=== PATIENT | female | born 1965 | race Caucasian/White ===

== ENCOUNTER 2022-05-02 11:51 | Emergency (ER) | payer OTHER, SELFPAY ==
--- NOTE | ~2022-05-02 | XR_ITS ---
EXAMINATION: XR CHEST CLINICAL INFORMATION: Chest pain COMPARISON: Previous chest x-ray most recent March 2016 TECHNIQUE: Frontal view of the chest was obtained. FINDINGS: No significant abnormality is noted involving the heart, lungs, mediastinum, bony thorax or soft tissues. XR/XR chest 1V IMPRESSION: Unremarkable examination.
--- NOTE | ~2022-05-02 | CT_ITS ---
EXAMINATION: CT HEAD WITHOUT CONTRAST CLINICAL INFORMATION: Dizziness. COMPARISON: No relevant prior imaging. TECHNIQUE: Contiguous axial imaging was performed from the skull base to vertex without intravenous administration of contrast. This CT examination was performed using dose optimization techniques as appropriate, variously including the following: *Automated exposure control *Adjustment of mA and/or kV according to patient size (this includes techniques or standardized protocols for targeted exams where dose is matched to indication/reason for exam; i.e. extremities or head) *Use of iterative reconstruction technique DLP: 641 mGy-cm FINDINGS: There is no acute intracranial hemorrhage or abnormal extra-axial collection. No intracranial mass effect or midline shift. Lateral and third ventricles are normal. No hydrocephalus. Vogt-white matter differentiation is preserved and there is no evidence of acute territorial infarct. The calvarium and skull base are intact. Mastoid air cells and middle ear cavities are well aerated. No active paranasal sinus disease. Globes and orbits are symmetric. CT/CT head/brain wo IV con IMPRESSION: Normal CT scan of the head.
[2022-05-02 12:03] VITALS: BP 143/72; PULSE 124; PULSE 75; RESP 18; TEMP 36.8; O2SAT 98; BMI 30.1
--- NOTE | 2022-05-02 12:10 | ECG_ITS ---
Test Reason : chest pain Blood Pressure : / mmHG Vent. Rate : 069 BPM Atrial Rate : 069 BPM P-R Int : 154 ms QRS Dur : 082 ms QT Int : 400 ms P-R-T Axes : 024 060 044 degrees QTc Int : 428 ms Normal sinus rhythm Normal ECG No previous ECGs available Referred By: Dale Potts Electronically Signed By:HUMA MADERA MD
--- NOTE | 2022-05-02 12:11 | ED_ITS ---
HPI - General Adult General Chief complaint: General Medical Stated complaint: CP FROM MD OFFICE PER EMS Time Seen by Provider: 05/02/22 12:07 Source: patient Mode of arrival: ambulatory History of Present Illness HPI narrative: This is a 56 years old the female referred to us from the urgent care because of left-sided chest pain. She went to the urgent care because she was having leg cramps for about 4 days while sitting there she developed chest pain and dizziness she vomited x1. She has history of anxiety denies a history of diab etes high blood pressure hypercholesteremia Onset (ago): hour(s) (3) Location: chest Radiation: non-radiation Severity: mild Severity scale (1-10): 2 Quality: burning Pain Consistency: constant Related Data Allergies Allergy/AdvReac Type Severity Reaction Status Date / Time Sulfa (Sulfonamide Allergy Unknown Verified 03/15/18 00:00 Antibiotics) Review of Systems Constitutional: Constitutional: Reports no additional constitutional complaints Eyes: Eyes: Reports no additional eye complaints ENT: Reports system reviewed and no additional complaints, except as documented Cardiovascular: Cardiovascular: Reports no additional cardiovascular complaints Psychiatric: Psychiatric: Reports no additional psychiatric complaints [facility] Past Medical History [facility] Narrative: anxiety Social History Social History Smoked in Last 30 Days: No Advance Directives: Yes Advance Directives Information Provided: Yes Advance Directives on File: No Physical Exam ED Vital Signs: Vital Signs - 24 hr 05/02/22 12:03 05/02/22 15:00 Temperature 98.2 F 96.9 F Pulse Rate 75 71 Respiratory Rate 18 14 Blood Pressure 143/72 H 148/66 H Pulse Oximetry 98 99 Oxygen Delivery Method Room Air Room Air BMI result Body Mass Index 30.1 Const General: cooperative, comfortable, no acute distress and well developed Nutritional Appearance: well nourished Orientation/consciousness: patient oriented x3 Limitations: no limitations HENMT Head: Yes normal to inspection General nose exam: Normal external nose present Face and sinus: Yes normal facial exam Mouth: Normal oral and palatal mucosa present Throat: Yes posterior oropharynx normal Neck Neck: Yes normal visual inspection and Yes full ROM Chest Chest palpation & inspection: normal inspection of the chest Resp Effort & Inspection: normal respiratory effort Auscultation: clear to auscultation bilaterally Cardio Jugular venous distension: no JVD Rate: regular rate Rhythm: regular rhythm GI Inspection: Yes normal to inspection Palpation (GI): Soft to palpation Skin General skin exam: no rashes or lesions noted, elasticity normal and turgor normal Neuro General: patient oriented x3 Course Reevaluation(s) Reevaluation #1: AT THIS TIME THE PATIENT IS FEELING MUCH BETTER DELTA TROPONIN IS NEGATIVE SHE NORMAL ELECTROCARDIOGRAM I DO NOT EKG HAS ACUTE CORONARY SYNDROME, FAR THE DIZZINESS GOES SHE IS FEELING BETTER WE ARE WAITING FOR THE CT OF THE HEAD ASSUMING IS NORMAL ANTICIPATE DISCHARGE Reevaluation #2: i SIGNED OUT THE CASE TO dR HERRERA AT 4.[address] NEGATIVE,PT GAIT TO BE REEXAMINED Medications Administered Discontinued Medications Generic Name Dose Route Start Last Admin Trade Name Freq PRN Reason Stop Dose Admin Sodium Chloride 1,000 mls @ 999 mls/hr 05/02/22 12:15 05/02/22 14:34 Ns IVCONT 05/02/22 13:15 Infused .Q1H1M TONY Infusion Sodium Chloride 1,000 mls @ 999 mls/hr 05/02/22 14:30 05/02/22 14:32 Ns IVCONT 05/02/22 15:30 999 mls/hr .Q1H1M TONY Administration Ketorolac Tromethamine 30 mg 05/02/22 14:02 05/02/22 14:33 Ketorolac Tromethamine 30 Mg/Ml Vial IVPUSH 05/02/22 14:03 30 mg ONCE ONE Administration Meclizine HCl 25 mg 05/02/22 15:16 05/02/22 15:27 Meclizine Hcl 25 Mg Tablet PO 05/02/22 15:17 25 mg ONCE ONE Administration Ondansetron HCl 4 mg 05/02/22 12:10 05/02/22 12:20 Ondansetron Hcl 4 Mg/2 Ml Vial IVPUSH 05/02/22 12:11 4 mg ONCE ONE Administration Ondansetron HCl 4 mg 05/02/22 14:23 05/02/22 14:33 Ondansetron Hcl 4 Mg/2 Ml Vial IVPUSH 05/02/22 14:24 4 mg ONCE ONE Administration Medical Decision Making Lab Data Result diagrams: 05/02/22 12:42 05/02/22 12:42 Labs: Lab Results 05/02/22 05/02/22 05/02/22 Range/Units 12:42 12:42 12:42 WBC 5.9 (4.8-10.8) X10*3/uL RBC 4.15 L (4.20-5.50) X10*6/uL Hgb 12.7 (12.0-16.0) g/dl Hct 38.7 (37.0-47.0) % MCV 93.3 (80.0-98.0) fL MCH 30.6 (27.0-33.0) pg MCHC 32.8 (31.0-35.0) g/dl RDW 11.9 (11.0-16.0) % Plt Count 304 (160-400) X10*3/uL MPV 10.1 (9.4-12.3) fL Immature Gran % (Auto) 0.3 (0.0-0.4) % Neut % (Auto) 71.5 (45-73) % Lymph % (Auto) 19.1 L (20-40) % Harding % (Auto) 7.8 (2-11) % Eos % (Auto) 1.0 (0-4) % Baso % (Auto) 0.3 (0-2) % Lymph # (Auto) 1.1 L (1.2-4.9) X10*3/uL Harding # (Auto) 0.5 (0.1-1.2) X10*3/uL Eos # (Auto) 0.1 (0.0-0.4) X10*3/uL Baso # (Auto) 0.0 (0.0-0.2) X10*3/uL Abs Immat Gran (auto) 0.02 (0.00-0.03) X10*3/uL Absolute Neuts (auto) 4.2 (2.0-8.3) x10*3/uL Absolute Nucleated RBC 0.000 (0.0-0.012) X10*3/uL Nucleated RBC % (auto) 0.0 (0.0-0.2) /100WBC Sodium 138 (135-145) mmol/L Potassium 4.5 (3.3-5.1) mmol/L Chloride 103 (96-108) mmol/L Carbon Dioxide 27 (22-29) mmol/L Anion Gap 13 (12-20) BUN 12 (9-16) mg/dL Creatinine 0.59 (0.5-1.4) mg/dL Estim Creat Clear Calc 109.9 Estimated GFR > 60 Random Glucose 103 (60-115) mg/dL Calcium 9.2 (8.4-10.2) mg/dL Magnesium (1.6-2.6) mg/dL Total Bilirubin 0.6 (0.0-1.0) mg/dL AST 14 (5-31) U/L ALT 10 (0-31) U/L Alkaline Phosphatase 51 (39-117) U/L Troponin I High Sens < 3.5 (<3.5-17.0) ng/L Total Protein 7.0 (6.5-8.0) g/dL Albumin 4.3 (3.5-5.0) g/dL Beta HCG, Quant 3 mIU/mL COVID-19 (SURYA) (Negative) COVID-19 Clin Com 05/02/22 05/02/22 05/02/22 Range/Units 12:42 14:37 14:37 WBC (4.8-10.8) X10*3/uL RBC (4.20-5.50) X10*6/uL Hgb (12.0-16.0) g/dl Hct (37.0-47.0) % MCV (80.0-98.0) fL MCH (27.0-33.0) pg MCHC (31.0-35.0) g/dl RDW (11.0-16.0) % Plt Count (160-400) X10*3/uL MPV (9.4-12.3) fL Immature Gran % (Auto) (0.0-0.4) % Neut % (Auto) (45-73) % Lymph % (Auto) (20-40) % Harding % (Auto) (2-11) % Eos % (Auto) (0-4) % Baso % (Auto) (0-2) % Lymph # (Auto) (1.2-4.9) X10*3/uL Harding # (Auto) (0.1-1.2) X10*3/uL Eos # (Auto) (0.0-0.4) X10*3/uL Baso # (Auto) (0.0-0.2) X10*3/uL Abs Immat Gran (auto) (0.00-0.03) X10*3/uL Absolute Neuts (auto) (2.0-8.3) x10*3/uL Absolute Nucleated RBC (0.0-0.012) X10*3/uL Nucleated RBC % (auto) (0.0-0.2) /100WBC Sodium (135-145) mmol/L Potassium (3.3-5.1) mmol/L Chloride (96-108) mmol/L Carbon Dioxide (22-29) mmol/L Anion Gap (12-20) BUN (9-16) mg/dL Creatinine (0.5-1.4) mg/dL Estim Creat Clear Calc Estimated GFR Random Glucose (60-115) mg/dL Calcium (8.4-10.2) mg/dL Magnesium 1.9 (1.6-2.6) mg/dL Total Bilirubin (0.0-1.0) mg/dL AST (5-31) U/L ALT (0-31) U/L Alkaline Phosphatase (39-117) U/L Troponin I High Sens < 3.5 (<3.5-17.0) ng/L Total Protein (6.5-8.0) g/dL Albumin (3.5-5.0) g/dL Beta HCG, Quant mIU/mL COVID-19 (SURYA) Negative (Negative) COVID-19 Clin Com See Note ECG Data Attestation: I personally reviewed and interpreted this ECG as follows: Pacemaker model: NORMAL SINUS RHYTHM A NO ST-T CHANGES NORMAL ELECTROCARDIOGRAM Discharge Plan Discharge Clinical Impression: Chest pain, Dizziness Patient Disposition: Still a Patient Instructions: Chest Pain (DC), Dizziness (ED)
[2022-05-02] MEDS: ondansetron HCL 4 MG/2 ML VIAL IVPUSH ×2 (12:20→14:33)
[2022-05-02] MEDS: 0.9 % Sodium Chloride 1,000 ML 999 ML IVCONT ×2 (12:21→14:32)
[2022-05-02 12:52] LABS: MANUAL DIFF FLAG NO
[2022-05-02 12:57] LABS: Basophils Percent Auto 0.3 % (0-2); Eosinophils Absolute Auto 0.1 X10*3/uL (0.0-0.4); Hematocrit 38.7 % (37.0-47.0); Hemoglobin 12.7 g/dl (12.0-16.0); Imm Gran Abs Auto 0.02 X10*3/uL (0.00-0.03); Imm Gran Pct Auto 0.3 % (0.0-0.4); Lymphocytes Absolute Auto 1.1 X10*3/uL (1.2-4.9); Lymphocytes Percent Auto 19.1 % (20-40); Mean Corpuscular HGB Conc 32.8 g/dl (31.0-35.0); Mean Corpuscular Hemoglobin 30.6 pg (27.0-33.0); Mean Corpuscular Volume 93.3 fL (80.0-98.0); Mean Platelet Volume 10.1 fL (9.4-12.3); Monocytes Absolute Auto 0.5 X10*3/uL (0.1-1.2); Monocytes Percent Auto 7.8 % (2-11); Neutrophils Absolute Auto 4.2 x10*3/uL (2.0-8.3); Neutrophils Percent Auto 71.5 % (45-73); Platelet Count 304 X10*3/uL (160-400); Red Blood Count 4.15 X10*6/uL (4.20-5.50); Red Cell Distribution Width 11.9 % (11.0-16.0); White Blood Count 5.9 X10*3/uL (4.8-10.8)
[2022-05-02 13:06] LABS: COVID-19 Test Negative (Negative); IDNOW Serial# 16C4AD1C
[2022-05-02 13:18] LABS: Troponin-I High Sensitivity < 3.5 ng/L (<3.5-17.0)
[2022-05-02 13:21] LABS: Alanine Aminotransferase 10 U/L (0-31); Albumin Level 4.3 g/dL (3.5-5.0); Alkaline Phosphatase 51 U/L (39-117); Anion Gap 13 (12-20); Aspartate Amino Transferase 14 U/L (5-31); Bilirubin Total 0.6 mg/dL (0.0-1.0); Blood Urea Nitrogen 12 mg/dL (9-16); Calcium 9.2 mg/dL (8.4-10.2); Carbon Dioxide 27 mmol/L (22-29); Chloride 103 mmol/L (96-108); Creatinine Clr Calc Pharmacy 109.9; Estimated Glomerular Filt Rate > 60; Glucose Random 103 mg/dL (60-115); Potassium 4.5 mmol/L (3.3-5.1); Sodium 138 mmol/L (135-145)
[2022-05-02 13:27] LABS: HCG Quantitative 3 mIU/mL
[2022-05-02] MEDS: Ketorolac Tromethamine 30 MG/ML VIAL IVPUSH (14:33)
[2022-05-02 15:00] VITALS: BP 148/66; PULSE 71; RESP 14; TEMP 36.1; O2SAT 99
[2022-05-02 15:02] LABS: Magnesium 1.9 mg/dL (1.6-2.6)
[2022-05-02 15:22] LABS: Troponin-I High Sensitivity < 3.5 ng/L (<3.5-17.0)
[2022-05-02] MEDS: Meclizine HCl 25 MG TABLET PO (15:27)
[2022-05-02] MEDS: Metoclopramide HCl 10 MG/2 ML VIAL IVPUSH (16:41)
--- NOTE | 2022-05-02 19:08 | PC.NURSE ---
Patient a/ox4 . Went over discharge instructions as ordered by provider . patient to follow up with primary care . no questions at this time .
== END 2022-05-02 19:11 | disposition still patient (30) ==
PROVIDERS: Emergency Provider Emergency Medicine; PCP Internal Medicine
DX: R07.89 Other chest pain (principal); R42 Dizziness and giddiness; Z20.822 Contact with and (suspected) exposure to COVID-19; Z79.899 Other long term (current) drug therapy
CPT/HCPCS: 36415; 70450; 71045; 80053; 83735; 84484; 84702; 85025; 87635; 93005; 96361; 96374; 96375; 96376; 99285; J1885; J2405; J2765

== ENCOUNTER 2022-09-30 12:10 | Emergency (ER) | payer OTHER, SELFPAY ==
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
[2022-09-30 12:14] VITALS: BP 144/87; PULSE 75; RESP 20; TEMP 36.6; O2SAT 98; BMI 29.9
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
[2022-09-30 13:52] LABS: MANUAL DIFF FLAG NO
[2022-09-30 13:53] LABS: Basophils Percent Auto 0.6 % (0-2); Eosinophils Absolute Auto 0.1 X10*3/uL (0.0-0.4); Eosinophils Percent Auto 1.4 % (0-4); Hematocrit 38.3 % (37.0-47.0); Hemoglobin 12.6 g/dl (12.0-16.0); Imm Gran Abs Auto 0.02 X10*3/uL (0.00-0.03); Imm Gran Pct Auto 0.3 % (0.0-0.4); Lymphocytes Absolute Auto 2.4 X10*3/uL (1.2-4.9); Lymphocytes Percent Auto 34.4 % (20-40); Mean Corpuscular HGB Conc 32.9 g/dl (31.0-35.0); Mean Corpuscular Hemoglobin 30.6 pg (27.0-33.0); Mean Platelet Volume 10.4 fL (9.4-12.3); Monocytes Absolute Auto 0.5 X10*3/uL (0.1-1.2); Monocytes Percent Auto 7.5 % (2-11); Neutrophils Percent Auto 55.8 % (45-73); Platelet Count 311 X10*3/uL (160-400); Red Blood Count 4.12 X10*6/uL (4.20-5.50); Red Cell Distribution Width 12.2 % (11.0-16.0); White Blood Count 7.1 X10*3/uL (4.8-10.8)
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
[2022-09-30 15:05] LABS: Blood Urea Nitrogen 15 mg/dL (9-16); Potassium 3.5 mmol/L (3.3-5.1)
[2022-09-30 15:06] LABS: Alanine Aminotransferase 18 U/L (0-31); Albumin Level 4.2 g/dL (3.5-5.0); Alkaline Phosphatase 53 U/L (39-117); Anion Gap 14 (12-20); Aspartate Amino Transferase 21 U/L (5-31); Bilirubin Direct 0.2 mg/dL (0.0-0.5); Bilirubin Total 0.6 mg/dL (0.0-1.0); Calcium 9.4 mg/dL (8.4-10.2); Carbon Dioxide 27 mmol/L (22-29); Chloride 102 mmol/L (96-108); Estimated Glomerular Filt Rate > 60; Glucose Random 99 mg/dL (60-115); HCG Quantitative < 2 mIU/mL; Sodium 139 mmol/L (135-145)
[2022-09-30] MEDS: iohexoL 350 MG/ML 100 ML INFUS..BTL IV (15:47)
[2022-09-30] MEDS: Lidocaine 4 % Patch ADH..PATCH 1 PATCH TRANSDERMA (17:21)
[2022-09-30] MEDS: Ketorolac Tromethamine 15 MG/ML VIAL 30 MG IVPUSH (17:21)
[2022-09-30 17:30] VITALS: BP 181/73; PULSE 62; RESP 19; O2SAT 100
--- NOTE | 2022-11-17 15:49 | MHC.CM.ED ---
CM received telephone call from liaison at [facility], questioning if CM received her note in care port that the patient's son would not agree to being her HCP. CONSERVATION TECHNICIAN Jazmyn evaluated patient yesterday and did not feel patient had capacity to make medical decisions, but was safe for return to [facility]. Pt has been living there since 2021. CM explained to liaison that patient has no other family, as her in 2018 and that the facility may need to petition for guardianship. CM could not complete a HCP for this patient prior to her return via BLS to the facility. Liaison stated that patient is already refusing her medications and that they may have to send her back to us. CM explained that psych does not feel patient meets inpatient criteria, so that may not be the best plan for this patient. Again, stating that facility may need to petition for guardianship and obtain a [facility] order for medication administration to care for this patient.
== END 2022-09-30 17:37 | disposition home or self-care (01) ==
PROVIDERS: Physician Assistant; Physician Assistant Medical; Emergency Provider Emergency Medicine; PCP Internal Medicine
DX: R07.81 Pleurodynia (principal); S06.0X0A Concussion without loss of consciousness, initial encounter; S13.4XXA Sprain of ligaments of cervical spine, initial encounter; S20.211A Contusion of right front wall of thorax, initial encounter; V43.62XA Car passenger injured in collision with other type car in traffic accident, initial encounter; R10.11 Right upper quadrant pain; R06.02 Shortness of breath; R91.1 Solitary pulmonary nodule; Y93.89 Activity, other specified; Y92.414 Local residential or business street as the place of occurrence of the external cause; Y99.9 Unspecified external cause status
CPT/HCPCS: 36415; 70450; 71260; 72125; 74177; 80048; 80076; 84702; 85025; 96374; 99284; J1885; Q9967

== ENCOUNTER 2022-12-11 07:20 | Outpatient (REF) | payer OTHER, SELFPAY ==
--- NOTE | ~2022-12-11 | CT_ITS ---
EXAMINATION: CT CHEST WITHOUT CONTRAST CLINICAL INFORMATION: Right middle lobe nodule. COMPARISON: CT chest dated 09/30/2022. TECHNIQUE: Multidetector volumetric CT imaging of the chest was done. Axial MIP volume rendering provided. Sagittal and coronal reformatted images were obtained. This CT examination was performed using dose optimization techniques as appropriate, variously including the following: *Automated exposure control *Adjustment of mA and/or kV according to patient size (this includes techniques or standardized protocols for targeted exams where dose is matched to indication/reason for exam; i.e. extremities or head) *Use of iterative reconstruction technique DLP: 1255 mGy-cm FINDINGS: ACQUISITIONS ANALYST: The lungs are symmetrically well-expanded and grossly clear. LUNGS: Abutting the accessory fissure (7:313 and 6:73), a stable 4 mm benign fissural lymph node is seen. There are several benign, calcified bilateral lung granulomas. No new nodule, mass, infiltrate or groundglass opacity is seen. There is no generalized increase in peripheral interlobular septal markings. No bleb or bullous formation is seen. There is mild dependent hypoaeration. No small airway thickening is seen. The central airways appear patent. MEDIASTINUM: The mediastinum is normal. CORONARY ARTERY CALCIFICATION: None visualized on this study. PLEURA: There is no pleural effusion. No pleural mass or thickening. AXILLA: No lymphadenopathy. UPPER ABDOMEN: The gallbladder is surgically absent. The adrenal glands are unremarkable. OSSEOUS STRUCTURES: There are old, healed left rib fractures. A stable mild T6 anterior wedge compression fracture is seen. There is no acute or aggressive osseous finding. CT/CT chest wo IV con IMPRESSION: There is a stable 4 mm benign fissural lymph node applied to the accessory fissure. There are benign, calcified granulomas. No new nodule, mass, infiltrate or groundglass opacity is seen. There is no thoracic lymphadenopathy or pleural effusion. No aggressive osseous lesion is noted. Fleischner guidelines were followed.
== END 2022-12-11 07:21 | disposition home or self-care (01) ==
LOC: HO.CT 07:20
PROVIDERS: PCP Internal Medicine; Visit Provider Nurse Practitioner Acute Care
DX: R91.1 Solitary pulmonary nodule (principal)
CPT/HCPCS: 71250

== ENCOUNTER 2023-05-25 13:24 | Outpatient (AMB) | payer OTHER, SELFPAY ==
[2023-05-25 14:56] VITALS: BP 126/68; PULSE 72; TEMP 36.2; O2SAT 97; BMI 29.0
--- NOTE | 2023-05-25 14:56 | MHC.OFFWIV ---
Intake Vital Signs 05/25/23 14:56 Height 5 ft 5 in Weight 174 lb BMI 29.0 BP 126/68 Blood Pressure Location Lt brachial Position Sitting Pulse 72 Pulse Source Pulse Oximeter Temp 97.2 F Pulse Oximetry (%) 97 Oxygen Delivery Method Room Air Intake Visit Reasons: EP, cough, congestion (masked) Intake Note: pt is here today for cough congestion started 4 days ago Allergies Sulfa (Sulfonamide Antibiotics) Allergy (Unknown, Verified 05/25/23 15:31) Unknown Medication List - Last Reconciled 05/25/23 by Hadley Singh MD cyclobenzaprine 10 mg PO BEDTIME PRN ketorolac 10 mg PO TID PRN 5 days ketorolac 10 mg PO TID PRN 5 days lidocaine 5% 1 patch topical DAILY PRN meclizine 25 mg PO TID PRN Do you need a note to return to daycare/school/sports/work: Yes HPI EP, cough, congestion (masked) HPI Details Patient presents for a sick visit. Reporting symptoms of sinus congestion, sore throat and difficulty swallowing. Low-grade fever. No family member is sick. No recent travel. Patient reports symptoms of malaise and fatigue. PFSH Social History Alcohol intake: never Physical Exam Vital Signs: Last Vital Signs Temp 97.2 F 05/25/23 14:56 Pulse 72 05/25/23 14:56 BP 126/68 05/25/23 14:56 Pulse Ox 97 05/25/23 14:56 Oxygen Delivery Method Room Air 05/25/23 14:56 BMI result Body Mass Index 29.0 Const General: cooperative and healthy appearing Nutritional Appearance: well nourished Orientation/consciousness: patient oriented x3 Limitations: no limitations HEENT Head: Yes normal to inspection Eyes General: appearance normal, both eyes and all related structures Neck Neck: Yes normal visual inspection Chest Chest palpation & inspection: normal palpation of entire chest wall Resp Effort & Inspection: normal respiratory effort Neuro General: patient oriented x3 Assessment & Plan Assessment & Plan (1) Upper respiratory tract infection: Code(s): J06.9 - Acute upper respiratory infection, unspecified Plan Antibiotics ordered. Increase fluid intake. Tylenol for aches and pains. If symptoms worsen, follow-up here for a recheck. Orders: Orders SARS-CoV2/FLU/RSV Today R43.9 - Unspecified disturbances of smell and taste Coding Level of Care Code Est Pt Level 3 (83814) Diagnoses Upper respiratory tract infection J06.9
== END 2023-05-25 15:42 | disposition home or self-care (01) ==
PROVIDERS: PCP Internal Medicine; Visit Provider Internal Medicine
DX: J06.9 Acute upper respiratory infection, unspecified (principal)
CPT/HCPCS: 99213

== ENCOUNTER 2023-05-25 15:38 | Outpatient (REF) | payer OTHER, SELFPAY ==
[2023-05-26 12:44] LABS: Influenza A PCR NEGATIVE (Negative); Influenza B PCR NEGATIVE (Negative); Resp Syncy Virus RNA Qual PCR NEGATIVE (Negative); SARS COV2 PCR INHOUSE NEGATIVE (Negative)
== END 2023-05-25 15:39 | disposition home or self-care (01) ==
LOC: HO.LAB 15:38
PROVIDERS: Visit Provider Internal Medicine
DX: Z11.52 Encounter for screening for COVID-19 (principal); Z20.822 Contact with and (suspected) exposure to COVID-19; R43.9 Unspecified disturbances of smell and taste
CPT/HCPCS: 0241U

== ENCOUNTER 2023-09-16 18:06 | Emergency (ER) | payer OTHER, SELFPAY ==
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
[2023-09-16 18:07] VITALS: BP 154/83; PULSE 72; RESP 16; TEMP 36.7; O2SAT 100; BMI 29.1
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
[2023-09-16] MEDS: Ibuprofen 800 MG TABLET PO (18:45)
[2023-09-16 19:50] VITALS: BP 154/83; PULSE 72; RESP 16; TEMP 36.7; O2SAT 100
== END 2023-09-16 19:50 | disposition home or self-care (01) ==
PROVIDERS: Emergency Provider Emergency Medicine; PCP Internal Medicine
DX: S09.93XA Unspecified injury of face, initial encounter (principal); Y04.2XXA Assault by strike against or bumped into by another person, initial encounter; Y93.9 Activity, unspecified; Y92.89 Other specified places as the place of occurrence of the external cause; Y99.0 Civilian activity done for income or pay
CPT/HCPCS: 70486; 99283; 99284

== ENCOUNTER 2024-03-14 07:47 | Outpatient (REF) | payer OTHER, SELFPAY ==
--- NOTE | ~2024-03-14 | MM_ITS ---
EXAMINATION: MM SCREENING DIGITAL BREAST TOMOSYNTHESIS, BILATERAL CLINICAL INFORMATION: Screening. Asymptomatic. COMPARISON: Mammography: No prior imaging available for comparison. TECHNIQUE: Digital breast mammography with tomosynthesis is performed in both the craniocaudal and mediolateral oblique views along with computer-aided detection (CAD). FINDINGS: There are scattered areas of fibroglandular density (ACR BI-RADS breast composition Category b). Left: Asymmetry retroareolar region middle depth on MLO view. No suspicious calcifications or other abnormal findings. Right: Focal asymmetry upper outer breast anterior depth. Focal asymmetry lower central breast anterior depth. MM/MM tomosynthesis screening BI IMPRESSION: Additional imaging is recommended ASSESSMENT: BI-RADS BI-RADS 0 - Incomplete: Needs additional Imaging. RECOMMENDATION: 1. Additional views of the bilateral breasts 2. Targeted ultrasound if warranted after review of the additional views. 3. Radiology department staff will contact the patient for additional imaging. Additional Imaging required This examination should not preclude the clinical evaluation of a suspicious palpable abnormality. This patient's information was entered into a reminder system with a target due date for their next mammogram. Electronically signed by: Negrita Angel DO 03/25/2024 12:20 PM EDT
== END 2024-03-14 07:48 | disposition home or self-care (01) ==
LOC: HO.MAMMO 07:47
PROVIDERS: PCP Internal Medicine; Visit Provider Internal Medicine
DX: Z12.31 Encounter for screening mammogram for malignant neoplasm of breast (principal)
CPT/HCPCS: 77063; 77067

== ENCOUNTER → 2024-03-14 08:00 | Outpatient (BNV) | payer OTHER, SELFPAY | PROVIDERS: PCP Internal Medicine; Visit Provider Internal Medicine | DX: Z12.31 Encounter for screening mammogram for malignant neoplasm of breast (principal) | CPT/HCPCS: 77063; 77067 ==

== ENCOUNTER 2024-04-04 12:21 | Outpatient (REF) | payer OTHER, SELFPAY ==
--- NOTE | ~2024-04-04 | MM_ITS ---
EXAMINATION: MM DIAGNOSTIC DIGITAL BREAST TOMOSYNTHESIS, BILATERAL Bilateral Limited ultrasound. CLINICAL INFORMATION: Callback from screening for bilateral asymmetries. COMPARISON: Mammography: Comparison is made with relevant prior exams. TECHNIQUE: Digital breast mammography with tomosynthesis is performed in both the craniocaudal and mediolateral oblique views along with computer-aided detection (CAD). FINDINGS: There are scattered areas of fibroglandular density (ACR BI-RADS breast composition Category b). Left: Previously seen asymmetry appears is a circumscribed oval mass in the retroareolar region on additional imaging projections. No suspicious calcifications or other abnormal findings. Targeted color Doppler ultrasound scanning in the left breast demonstrates an ectatic duct in the retroareolar region and a simple cyst measuring 7 x 2 x 6 mm as well as a simple cyst in the retroareolar region at 9:00 measuring 4 x 2 mm is a likely correlate for asymmetry seen annual mammography. Right: Previously seen asymmetries persist on additional imaging projections. No suspicious calcifications or other abnormal findings. Targeted color Doppler ultrasound scanning in the right breast Demonstrates a solid mass at 6:00 in the retroareolar region measuring 11 x 5 x 3 mm. 6 month follow-up ultrasound is recommended for this area. Otherwise there are simple minimally complicated cysts and ectatic ducts scanning in the retroareolar region as follows: at 12:00 a simple cyst measuring 6 x 5 x 4 mm which correlates with the focal asymmetry in the upper central breast anterior depth. Results are provided to the patient at time of visit by the technologist. MM/MM tomosynthesis added view BI IMPRESSION: Left: Simple cyst correlating with the asymmetry seen in the left breast on mammography. Benign. Recommend follow-up screening mammogram in one year. Right: Solid mass at 6:00 in the retroareolar region on ultrasound. Recommend 6 month follow-up ultrasound for further evaluation of stability. Simple cyst on ultrasound. Benign. ASSESSMENT: BI-RADS BI-RADS 3 - Probably benign finding(s) - 6 month follow-up suggested RECOMMENDATION: 1 year F/U (accession [id number]), 6 Month F/U (accession [id number]) This patient's information was entered into a reminder system with a target due date for their next mammogram. Electronically signed by: Negrita Angel DO 04/04/2024 03:12 PM EDT RP
== END 2024-04-04 12:22 | disposition home or self-care (01) ==
LOC: HO.MAMMO 12:21
PROVIDERS: PCP Internal Medicine; Visit Provider Internal Medicine
DX: R92.8 Other abnormal and inconclusive findings on diagnostic imaging of breast (principal)
CPT/HCPCS: 76642; 77062; 77066

== ENCOUNTER → 2024-04-04 12:30 | Outpatient (BNV) | payer OTHER, SELFPAY | PROVIDERS: PCP Internal Medicine; Visit Provider Internal Medicine | DX: R94.8 Abnormal results of function studies of other organs and systems (principal) | CPT/HCPCS: 76642; 77062; 77066 ==

== ENCOUNTER 2024-04-21 16:41 | Outpatient (REF) | payer OTHER, SELFPAY ==
--- NOTE | ~2024-04-21 | CT_ITS ---
EXAMINATION: CT CHEST WITHOUT CONTRAST CLINICAL INFORMATION: f/up right middle lobe nodule COMPARISON: CT chest 12/11/2022 and 09/30/2022 TECHNIQUE: Multidetector volumetric CT imaging of the chest was done. Axial MIP volume rendering provided. Sagittal and coronal reformatted images were obtained. This CT examination was performed using dose optimization techniques as appropriate, variously including the following: *Automated exposure control *Adjustment of mA and/or kV according to patient size (this includes techniques or standardized protocols for targeted exams where dose is matched to indication/reason for exam; i.e. extremities or head) *Use of iterative reconstruction technique DLP: 164 mGy-cm FINDINGS: LUNGS: Central airways are patent. Few scattered calcified granuloma. Stable micronodules including a 0.4 cm groundglass nodule in the right middle lobe (series #5 axial image 351) and a 0.2 cm pleural-based left lower lobe nodule (series #5 axial image 370), stable since 09/30/2022. No new or suspicious pulmonary nodule. No focal consolidation or mass. No pleural effusion or pneumothorax. MEDIASTINUM: The mediastinum is normal. No hilar or mediastinal lymphadenopathy. Normal thyroid. CORONARY ARTERY CALCIFICATION: None visualized on this study. AXILLA: No lymphadenopathy. UPPER ABDOMEN: Cholecystectomy. OSSEOUS STRUCTURES: No acute or suspicious osseous abnormality. Minor multilevel thoracic spondylosis. CT/CT chest wo IV con IMPRESSION: Stable micronodules including a 0.4 cm groundglass nodule in the right middle lobe and a 0.2 cm pleural-based left lower lobe nodule, stable since 09/30/2022. No new or suspicious pulmonary nodule. Per the 2017 revised Fleischner Society guidelines, no follow-up needed if patient is low-risk (and has no known or suspected primary neoplasm). Non-contrast chest CT can be considered in 12 months if patient is high-risk. Fleischner guidelines were followed. Electronically signed by: Guillermina Desai DO 04/22/2024 09:19 AM [facility]
== END 2024-04-21 16:42 | disposition home or self-care (01) ==
LOC: HO.CT 16:41
PROVIDERS: PCP Internal Medicine; Visit Provider Nurse Practitioner Acute Care
DX: R91.1 Solitary pulmonary nodule (principal)
CPT/HCPCS: 71250

== ENCOUNTER → 2024-07-24 14:22 | Outpatient (BNVA) | payer OTHER, SELFPAY | PROVIDERS: PCP Internal Medicine; Visit Provider Physician Assistant Medical | DX: Z13.89 Encounter for screening for other disorder (principal) | CPT/HCPCS: 99203 ==

== ENCOUNTER → 2024-08-01 12:43 | Outpatient (BNVA) | payer OTHER, SELFPAY | PROVIDERS: PCP Internal Medicine; Visit Provider Physician Assistant Medical | DX: Z13.89 Encounter for screening for other disorder (principal) | CPT/HCPCS: 72110; 99214 ==

== ENCOUNTER → 2024-08-04 08:10 | Outpatient (BNVA) | payer OTHER, SELFPAY | PROVIDERS: PCP Internal Medicine; Visit Provider Physician Assistant Medical | DX: Z13.89 Encounter for screening for other disorder (principal) | CPT/HCPCS: 99213 ==

== ENCOUNTER → 2024-08-19 13:56 | Outpatient (BNVA) | payer OTHER, SELFPAY | PROVIDERS: PCP Internal Medicine; Visit Provider Physician Assistant Medical | DX: Z13.89 Encounter for screening for other disorder (principal) | CPT/HCPCS: 99213 ==

== ENCOUNTER 2024-10-07 09:50 | Outpatient (REF) | payer OTHER, SELFPAY ==
--- NOTE | ~2024-10-07 | US_ITS ---
EXAMINATION: US DIAGNOSTIC ULTRASOUND BREAST, RIGHT CLINICAL INFORMATION: 6 month follow-up for solid mass versus complicated cyst in the right breast at 6:00 3 cm from the nipple.. COMPARISON: Comparison is made with relevant prior imaging. TECHNIQUE: Ultrasound of the breast is performed with real-time rainey scale imaging and color Doppler. FINDINGS: Targeted color Doppler ultrasound scanning in the right breast at 6:00 3 cm from nipple again demonstrates a hypoechoic oval solid mass versus complicated cyst measuring 8 x 4 x 3 mm not significantly changed from prior ultrasound. No other sonographic abnormality is seen. Results are discussed with the patient at time of visit. US/US breast RT limited mamm only IMPRESSION: Solid mass versus complicated cyst at 6:00 3 cm from the nipple not significantly changed from prior ultrasound 6 months ago. Recommend 6 month follow-up ultrasound for further evaluation of stability. ASSESSMENT: BI-RADS 3: Probably Benign RECOMMENDATION: Diagnostic mammography in 6 months. This patient's information was entered into a reminder system with a target due date for their next mammogram. Electronically signed by: Negrita Angel DO 10/07/2024 10:26 AM EDT
--- OUTSIDE RECORDS SUMMARY | 2024-10-07 10:57 | XMS_ITS | Clinical Summary ---
Author Organization [facility] 299 [facility] Address [address] [place] [address] Phone Care Team Providers Care Chuck Splitter Name Role Phone Malaika Cuello MD Primary Care Provider [phone] Allergies Active Allergy Reactions Criticality Noted Date Comments Bupropion Hcl Sleep Issues 08/15/2024 Levofloxacin Rash 08/15/2024 Penicillins Rash 08/15/2024 Sulfamethoxazole Hives 08/15/2024 Medications LORazepam (ATIVAN) 0.5 mg tablet Take 0.5 mg by mouth every 6 hours as needed. Active citalopram hydrobromide (CELEXA ORAL) Take 30 mg by mouth 1 (one) time each day. Active lansoprazole (PREVACID) [address] capsuleIndicatio ns:Gastroesophag eal reflux disease without esophagitis Take 1 capsule (30 mg total) by mouth 1 (one) time each day. Do not crush or chew. 90 each 3 08/16/19 25 026 Active propranoloL (INDERAL) 10 mg tablet Take 1 tablet (10 mg total) by mouth 1 (one) time if needed (anxiety). 09/06/19 25 Active norethindrone (AYGESTIN) 5 mg tablet Take 5 mg by mouth daily. 025 Discontinued hydrocortisone (ANUSOL-HC) [address] 25 mg rectally 2 times daily. 025 Discontinued estradioL (ESTRACE) 0.5 mg tablet Take 0.5 mg by mouth at bedtime. 025 Discontinued linaCLOtide (Linzess) 145 mcg capsuleIndicatio ns:Chronic constipation Take 1 capsule (145 mcg total) by mouth 1 (one) time each day. 90 each 3 08/16/19 25 025 Discontinued hydrOXYzine HCL (ATARAX) 10 mg tablet Take 1 tablet (10 mg total) by mouth every 6 (six) hours if needed. 09/16/19 25 025 Discontinued ibuprofen (ADVIL,MOTRIN) 800 mg tablet Take 200 mg by mouth every 8 (eight) hours if needed for mild pain. 12/31/19 24 025 Discontinued(St op Taking at Discharge) mirabegron (MYRBETRIQ) 50 mg tablet extended release 24 hr 24 hr tablet Take 1 tablet (50 mg total) by mouth 1 (one) time if needed. 08/07/19 25 025 Discontinued Active Problems Problem Noted Date Diagnosed Date S/P anterior colporrhaphy 09/17/2024 Gastroesophageal reflux disease without esophagi tis 08/15/2024 Assessment & Plan (08/15/2024 5:35 PM EDT): Stable with lansoprazole 30 mg once a day. Orders: lansoprazole (PREVACID) [address] capsule; Take 1 capsule (30 mg total) by mouth 1 (one) time each day. Do not crush or chew. Adenomatous polyp of colon 08/15/2024 Assessment & Plan (08/15/2024 5:35 PM EDT): 5-year surveillance colonoscopy was due in 2022. Patient would like to continue her GI care with our office. Colon Hx polyps/5 yr (2018) [address] Colonoscopy reviewed with patient. Risks discussed including bleeding perforation and missed lesions. There is always a chance surgery or transfusion could be required. Prep discussed with patient. Risks of anesthesia reviewed. Patient advised will need a ride home, not to have liquids for at least 3 hours prior to the procedure. Rheumatoid arthritis (CMS/HCC V24, CMS/HCC V28) 08/15/2024 Encounters Date Type Department Care Team Description 09/17/2024 7:49 AM EDT Anesthesia Event [facility] Main OR [address] [place] [address] Jessica Berger MD Elliott, Barbara J, CRNA 09/17/2024 7:30 AM EDT - 09/17/2024 9:00 AM EDT Surgery [facility] OR [address] [place] [phone] Sara Arriola MD ANTERIOR COLPORRHAPHY [[id number] (CPT??)] 09/17/2024 6:08 AM EDT - 09/18/2024 12:11 PM EDT Hospital Encounter [facility] Medical Surgical Unit [address] [place] [phone] Sara Arriola MD Discharge Disposition: Home or Self Care 08/15/2024 10:40 AM EDT Office Visit Gastroenterology - [address] [phone] Parviz Martin PA Chronic constipation (Primary Dx); Gastroesophageal reflux disease without esophagitis; Adenomatous polyp of colon, unspecified part of colon 08/15/2024 Telephone Gastroenterology - [address] [phone] Parviz Martin PA 08/15/2024 Telephone Gastroenterology - [address] [phone] Emreson Ortega MD 08/15/[address] [facility] - Main Lab 299 [facility] [place] [phone] Sara Arriola MD Encounter for gynecological examination (general) (routine) without abnormal findings 07/21/2024 Telephone Gastroenterology - [address] [phone] Parviz Martin PA Refill Request from Last 3 Months Surgical History Surgery Date Site/Laterality Comments OTHER SURGICAL HISTORY 2003 PROCEDURE: [place] HYSTEROSCOPY ENDOMETRIAL ABLATION OTHER SURGICAL HISTORY 01/19/2015 PROCEDURE: VT ANTERIOR COLPORRAPHY RPR CYSTOCELE W/CYSTO COLONOSCOPY 03/04/2018 - 04/03/2018 TA x1, sig tics, int rhoids (5yr) ESOPHAGOGASTRODUODENOSCOPY 03/04/2018 - 04/03/2018 small HH, unremakrabl sm bowel and gastric biopsies Medical History Medical History Date Comments Anxiety state DX:Anxiety state Depressive disorder DX:Depressiv e disorder Irritable bowel syndrome DX:Irri table bowel syndrome Esophageal reflux DX:Esophageal reflux HSV infection DX:HSV infection Family History Medical History Relation Name Comments Diabetes Mother Heart attack Mother Lung disease Mother Relation Name Status Comments Mother Other Other mesothelioma Sister Other hodgkin's disea se Social History Tobacco Use Types Packs/Day Years Used Date Smoking Tobacco: Former Cigarettes Q uit: 2014 Smokeless Tobacco: Never Tobacco Cessation:Counseling Given: Not Answered Alcohol Use Standard Drinks/Week Comments Not Currently 0 (1 standard drink = 0.6 oz pur e alcohol) socially Interpersonal Safety Answer Date Record ed Physical Abuse 09/17/2024 Verbal Abuse 09/17/2024 Comments No Sex and Gender Information Value Date Recorded Sex Assigned at Not on file Legal Sex Female 11:18 PM EST Gender Identity Not on file Sexual Orientation Not on file Obstetrics History Last Filed Vital Signs Vital Sign Reading Time Taken Comments Blood Pressure 129/61 09/18/2024 8:24 AM EDT Pulse 65 09/18/2024 8:24 AM EDT Temperature 37.2 ??C (99 ??F) 09/18/2024 8:24 AM EDT Respiratory Rate 17 09/18/2024 8:24 AM EDT Oxygen Saturation 100% 09/18/2024 8:24 AM EDT Inhaled Oxygen Concentration - - Weight 79.8 kg (176 lb) 09/17/2024 6:26 AM EDT Height 165.1 cm (5' 5 ) 09/17/2024 6:26 AM EDT Body Mass Index 29.29 09/17/2024 6:26 AM EDT Plan of Treatment Health Maintenance Due Date Last Done Comments Pneumococcal Vaccine: 50+ Years (1 of 1 - PCV) 09/12/2013 Zoster Vaccines (1 of 2) 09/12/2013 Breast Cancer Screening 06/11/2022 06/11/2020 COVID-19 Vaccine ( season) 2024 04/10/2022, 05/13/2021, 07/01/2020, Additional history exists Depression Screening 07/21/2024 HIV Screening 07/21/2024 Hepatitis C Screening 07/21/2024 Social Influencers of Health Screening 07/21/2024 Influenza Vaccine (Season Ended) 2025 03/10/2021, 03/10/2019, 03/27/2018, Additional history exists Cervical Cancer Screening: Pap Smear 08/15/2027 08/14/2024 Colorectal Cancer Screening: Colonoscopy 03/05/2028 03/05/2018 DTaP,Tdap,and Td Vaccines (3 - Td or Tdap) 10/25/2030 10/25/2020, 05/10/2016 RSV Immunization Adult Patients (1 - 1-dose 75+ series) 09/12/2038 HIB Vaccines Aged Out No longer eligi ble based on patient's age to complete this topic HPV Vaccines Aged Out No longer eligi ble based on patient's age to complete this topic Hepatitis A Vaccines Aged Out No long er eligible based on patient's age to complete this topic Hepatitis B Vaccines Aged Out No long er eligible based on patient's age to complete this topic IPV Vaccines Aged Out No longer eligi ble based on patient's age to complete this topic MMR Vaccines Aged Out No longer eligi ble based on patient's age to complete this topic Meningococcal ACWY Vaccine Aged Out N o longer eligible based on patient's age to complete this topic Meningococcal B Vaccine Aged Out No l onger eligible based on patient's age to complete this topic Pneumococcal Vaccine: Pediatrics (0 to 5 Years) and At-Risk Patients (6 to 64 Years) Aged Out No longer eligible based on patient's age to complete this topic RSV Immunization Patients Under 20 months Aged Out No longer eligible based on patient's age to complete this topic Varicella Vaccines Aged Out No longer eligible based on patient's age to complete this topic Medical Devices Implanted Type Area Recovery Agent Device Identifier Shelf Expiration Date Model / Serial / Lot Dental Implants Dental Implants N/A: Mouth Procedures Procedure Name Priority Date/Time Associated Diagnosis Comments OXYGEN THERAPY, ADULT Routine 09/17/2024 9:10 AM EDT OXYGEN THERAPY, ADULT Routine 09/17/2024 9:10 AM EDT TH AN LMA(NO CHARGE) Routine 09/17/2024 8:00 AM EDT VT ANTERIOR COLPORRHAPHY REPR CYSTOCELE W/WO REPR URETHROCELE INCL CYSTO 09/17/2024 7:48 AM EDT Cystocele, midline Case Notes T CLAMPS x4, BAHENA CLAMPS x4, MOVE TO OR17 PROCEDURAL ECG Routine 09/11/2024 11:22 AM EDT CBC WITH AUTO DIFFERENTIAL Routine 09/11/2024 11:08 AM EDT Pre-op evaluation BASIC METABOLIC PANEL Routine 09/11/2024 11:08 AM EDT Pre-op evaluation CBC AND DIFFERENTIAL Routine 09/11/2024 11:08 AM EDT Pre-op evaluation TYPE AND SCREEN Routine 09/11/2024 11:08 AM EDT Pre-op evaluation PAP SMEAR Routine 08/14/2024 12:00 AM EDT Encounter for gynecological examination (general) (routine) without abnormal findings EXTERNAL XRAY REPORT 08/01/2024 EXTERNAL XRAY REPORT 08/01/2024 EXTERNAL COLONOSCOPY REPORT Routine 03/05/2018 9:03 AM EDT from Last 3 Months or Most Recently Relevant to Health Maintenance Results * TH AN LMA(NO CHARGE) (09/17/2024 8:00 AM EDT) Narrative iLnda Landaverde CRNA - 09/17/2024 8:00 AM EDT Linda Landaverde CRNA ? 09/17/2024 ??8:00 AM General Information and Staff Patient location during procedure: OR Resident/KILN BURNER: Linda Landaverde CRNA Performed: resident/KERMIT/LINNETTE Performed by: Linda Landaverde CRNA Authorized by: Jessica Berger MD ?? Intubation Airway not difficult Urgency: elective Final Airway Details Number of attempts at approach: 1 Ventilation between attempts: none Number of other approaches attempted: 0Final airway type: LMA Indications and Patient Condition Indications for airway management: anesthesia and airway protection Spontaneous ventilation: present Sedation level: Yes Preoxygenated: yes Soft Tissue Damage: No Dentition Unchanged: Yes Patient position: neutral MILS maintained throughout Mask difficulty assessment: 0 - not attempted us Jessica Berger MD ANESTHESIA ORDERABLES Final Resu lt * ECG 12 lead - Procedural (No Charge) (09/11/2024 11:22 AM EDT) Ventricular Rate ECG 70 BPM GEMUSE Atrial Rate 70 BPM GEMUSE P-R Interval 160 ms GEMUSE QRS Duration 80 ms GEMUSE Q-T Interval 392 ms GEMUSE QTc 423 ms GEMUSE P Wave [place] 22 degrees GEMUSE R [place] 57 degrees GEMUSE T [place] 40 degrees GEMUSE ECG Interpretation Normal sinus rhythm Normal ECG No previous ECGs available Confirmed by MD Gumaro, Ashton ([id number]) on 09/12/2024 1:19:30 AM GEMUSE 09/11/2024 11:2 2 AM EDT 09/12/2024 1:19 AM EDT us Sara Arriola MD ECG ORDERABLES Final Re sult GEMUSE * CBC auto differential (09/11/2024 11:08 AM EDT) Pathologist [facility] WBC 6.1 4.8 - 10.8 K/mcL LAB HEMETOLOGY METHOD 09/11/2024 12:21 PM EDT [facility] RBC 4.40 3.80 - 4.80 M/mcL LAB HEMETOLOGY METHOD 09/11/2024 12:21 PM EDT [facility] Hemoglobin 13.5 11.5 - 16.0 g/dL LAB HEMETOLOGY METHOD 09/11/2024 12:21 PM EDT [facility] Hematocrit 41.0 35.0 - 47.0 % LAB HEMETOLOGY METHOD 09/11/2024 12:21 PM EDT [facility] MCV 93.6 79.0 - 98.0 FL LAB HEMETOLOGY METHOD 09/11/2024 12:21 PM [facility] MCH 30.8 27.0 - 32.0 pcg LAB HEMETOLOGY METHOD 09/11/2024 12:21 PM [facility] MCHC 32.9 32.0 - 37.0 g/dL LAB HEMETOLOGY METHOD 09/11/2024 12:21 PM [facility] RDW 11.6 11.0 - 15.0 % LAB HEMETOLOGY METHOD 09/11/2024 12:21 PM [facility] Platelets 347 130 - 400 K/mcL LAB HEMETOLOGY METHOD 09/11/2024 12:21 PM [facility] MPV 10.3 7.0 - 11.0 FL LAB HEMETOLOGY METHOD 09/11/2024 12:21 PM [facility] NRBC 0.0 <1.0 % LAB HEMETOLOGY METHOD 09/11/2024 12:21 PM [facility] NRBC Absolute 0.00 <0.10 K/mcL LAB HEMETOLOGY METHOD 09/11/2024 12:21 PM [facility] Neutrophils Relative 60.1 % LAB HEMETOLOGY METHOD 09/11/2024 12:21 PM [facility] Lymphocytes Relative 27.8 % LAB HEMETOLOGY METHOD 09/11/2024 12:21 PM [facility] Monocytes Relative 9.4 % LAB HEMETOLOGY METHOD 09/11/2024 12:21 PM [facility] Eosinophils Relative 2.0 % LAB HEMETOLOGY METHOD 09/11/2024 12:21 PM [facility] Basophils Relative 0.5 % LAB HEMETOLOGY METHOD 09/11/2024 12:21 PM [facility] Immature Granulocytes Relative 0.2 % LAB HEMETOLOGY METHOD 09/11/2024 12:21 PM EDT [facility] Neutrophils Absolute 3.67 1.50 - 7.00 K/mcL LAB HEMETOLOGY METHOD 09/11/2024 12:21 PM EDT [facility] Lymphocytes Absolute 1.69 1.00 - 5.00 K/mcL LAB HEMETOLOGY METHOD 09/11/2024 12:21 PM EDT [facility] Monocytes Absolute 0.57 0.20 - 1.00 K/mcL LAB HEMETOLOGY METHOD 09/11/2024 12:21 PM EDT [facility] Eosinophils Absolute 0.12 0.00 - 0.50 K/mcL LAB HEMETOLOGY METHOD 09/11/2024 12:21 PM EDT [facility] Basophils Absolute 0.03 0.00 - 0.20 K/mcL LAB HEMETOLOGY METHOD 09/11/2024 12:21 PM EDT [facility] Immature Granulocytes Absolute 0.01 0.00 - 0.03 K/mcL LAB HEMETOLOGY METHOD 09/11/2024 12:21 PM EDT [facility] Blood Venous blood specimen / Unknown Venipuncture / Unknown 09/11/2024 11:08 AM EDT 09/11/2024 11:58 AM EDT us Sara Arriola MD LAB BLOOD ORDERABLES Fin al Result [facility] [address] [place] [address], * Type and screen (09/11/2024 11:08 AM EDT) ABO Group A 09/11/2024 12:54 PM EDT [facility] Rh Type Positive 09/11/2024 12:54 PM EDT [facility] Antibody Screen Negative 09/11/2024 12:54 PM EDT [facility] Blood Venous blood specimen / Unknown Venipuncture / Unknown 09/11/2024 11:08 AM EDT 09/11/2024 11:58 AM EDT us Sara Arriola MD LAB BLOOD BANK TEST ISAAC ARIAS Final Result [facility] [address] [place] [address], * (ABNORMAL) Basic metabolic panel (09/11/2024 11:08 AM EDT) Sodium 137 133 - 145 mmol/L LAB CHEMISTRY METHOD 09/11/2024 12:58 PM [facility] Potassium 3.9 3.5 - 5.5 mmol/L LAB CHEMISTRY METHOD 09/11/2024 12:58 PM [facility] Chloride 104 96 - 110 mmol/L LAB CHEMISTRY METHOD 09/11/2024 12:58 PM [facility] CO2 25 21 - 32 mmol/L LAB CHEMISTRY METHOD 09/11/2024 12:58 PM [facility] Anion Gap 8 3 - 11 LAB CHEMISTRY METHOD 09/11/2024 12:58 PM [facility] Glucose 106(H) 70 - 100 mg/dL LAB CHEMISTRY METHOD 09/11/2024 12:58 PM [facility] BUN 17 5 - 25 mg/dL LAB CHEMISTRY METHOD 09/11/2024 12:58 PM [facility] Creatinine 0.54 0.50 - 1.10 mg/dL LAB CHEMISTRY METHOD 09/11/2024 12:58 PM [facility] eGFR 106 >=60 mL/min/1. 73m2 LAB CHEMISTRY METHOD 09/11/2024 12:58 PM [facility] Comment:Calculation based on the??Chronic Kidney Disease Epidemiology Collaboration (CKD-EPI) equation refit??without adjustment for race. BUN/Creatinine Ratio 31.5 LAB CHEMISTRY METHOD 09/11/2024 12:58 PM EDT [facility] Calcium 9.1 8.5 - 10.5 mg/dL LAB CHEMISTRY METHOD 09/11/2024 12:58 PM EDT [facility] Blood Venous blood specimen / Unknown Venipuncture / Unknown 09/11/2024 11:08 AM EDT 09/11/2024 11:58 AM EDT us Sara Arriola MD LAB BLOOD ORDERABLES Fin al Result [facility] [address] [place] [address], * Pap smear (08/14/2024 12:00 AM EDT) Interpretation Negative for intraepithelial lesion or malignancy 08/18/2024 9:54 AM [facility] General Categorization Negative 08/18/2024 9:54 AM [facility] Specimen Adequacy Satisfactory for evaluation, endocervical/peres sformation zone component absent 08/18/2024 9:54 AM [facility] Pap Methodology Liquid Based Pap Test 08/18/2024 9:54 AM T [facility] Disclaimer The Pap test is a screening test which carries an inherent false negative rate. These test results should be correlated with the patient's clinical findings and history. This Pap test was processed using an automated screening system. Technical cytopathology services provided by [facility], at [address] [place] [id number] (CLIA # [id number]/Gladis Christensen MD, Bologna Maker.) 08/18/2024 9:54 AM T [facility] Console Pap Interpretation Reported 08/18/2024 9:54 AM EDT [facility] Brushing/Spatula Cervix uteri structure / Unknown 08/14/2024 08/15/2024 6:43 AM EDT Sara Arriola MD LAB CYTOLOGY ORDERABLES Final Result [facility] [address] [place] [address], * External Xray Report (08/01/2024) Only the most recent of2 resultswithin the time period is included. Anatomical Region Laterality Modality Radiographic Mary ging Provider [facility] IMG XR PROCEDURES Final Result * External Colonoscopy Report (03/05/2018 9:03 AM EDT) Anatomical Region Laterality Modality Endoscopy Historical Provider GI~PROCEDURE ORDERABLES F inal Result from Last 3 Months or Most Recently Relevant to Health Maintenance Insurance [facility] Advance Directives * Full Code - Default (Latest Code Status on File) Date Activated Date Inactivated Comments 09/17/2024 11:53 AM 09/18/2024 2:17 PM This is ord er is used when code status has not been discussed with the patient, or code status is otherwise unknown/unconfirmed To update the patient's code status, place a code status order. Do not modify or discontinue any currently active code status orders. * Full Code - Default Date Activated Date Inactivated Comments 09/17/2024 6:13 AM 09/17/2024 11:53 AM This is ord er is used when code status has not been discussed with the patient, or code status is otherwise unknown/unconfirmed To update the patient's code status, place a code status order. Do not modify or discontinue any currently active code status orders. Care Teams Chuck Splitter Relationship Specialty Start Date End Date Malaika Cuello MD [address] [place] [phone] PCP - General Internal Medicine 07/21/24
--- OUTSIDE RECORDS SUMMARY | 2024-10-07 10:57 | XMS_ITS | Encounter Summary ---
Author Organization [facility] Address [address] [place] [address] Care Team Providers Care Cloth Tester Quality Name Role Phone Malaika Cuello MD Primary Care Provider [phone] Encounter Details Date Type Department Care Team (Latest Contact Info) Description 08/15/2024 Lab Requisition [facility] - Main Lab [address] [place] [phone] Sara Arriola MD [address] [phone] Encounter for gynecological examination (general) (routine) without abnormal findings Social History Tobacco Use Types Packs/Day Years Used Date Smoking Tobacco: Some Days Smokeless Tobacco: Never Alcohol Use Standard Drinks/Week Comments Not Currently 0 (1 standard drink = 0.6 oz pur e alcohol) Comments Unknown Sex and Gender Information Value Date Recorded Sex Assigned at Not on file Legal Sex Female 11:18 PM EST Gender Identity Not on file Sexual Orientation Not on file documented as of this encounter Plan of Treatment Not on file documented as of this encounter Procedures Procedure Name Priority Date/Time Associated Diagnosis Comments PAP SMEAR Routine 08/14/2024 12:00 AM EDT Encounter for gynecological examination (general) (routine) without abnormal findings documented in this encounter Results * Pap smear (08/14/2024 12:00 AM EDT) Interpretation Negative for intraepithelial lesion or malignancy 08/18/2024 9:54 AM EDT [facility] General Categorization Negative 08/18/2024 9:54 AM [facility] Specimen Adequacy Satisfactory for evaluation, endocervical/peres sformation zone component absent [facility]24 [facility] Pap Methodology Liquid Based Pap Test 08/18/2024 9:54 AM EDT [facility] Disclaimer The Pap test is a screening test which carries an inherent false negative rate. These test results should be correlated with the patient's clinical findings and history. This Pap test was processed using an automated screening system. Technical cytopathology services provided by [facility], at [address] [place] [address] (CLIA # [id number]/Gladis Christensen MD, Kindergarten Teacher.) 08/18/2024 9:54 AM EDT [facility] Console Pap Interpretation Reported 08/18/2024 9:54 AM [facility] Brushing/Spatula Cervix uteri structure / Unknown 08/14/2024 08/15/2024 6:43 AM EDT us Sara Arriola MD LAB CYTOLOGY ORDERABLES Final Result [facility] [address] [place] [address], documented in this encounter Visit Diagnoses Diagnosis Encounter for gynecological examination (general) (routine) without abnormal findings documented in this encounter Care Teams Cloth Tester Quality Relationship Specialty Start Date End Date Malaika Cuello MD [address] [place] [phone] PCP - General Internal Medicine 07/21/24 documented as of this encounter
--- OUTSIDE RECORDS SUMMARY | 2024-10-07 10:57 | XMS_ITS | Continuity of Care Document ---
Author Organization [facility] Address [address] [place] [id number] Social History Not on File Plan of Treatment Not on file
== END 2024-10-07 09:51 | disposition home or self-care (01) ==
LOC: HO.MAMMO 09:50
PROVIDERS: PCP Internal Medicine; Visit Provider Internal Medicine
DX: R92.8 Other abnormal and inconclusive findings on diagnostic imaging of breast (principal)
CPT/HCPCS: 76642

== ENCOUNTER → 2024-10-07 10:00 | Outpatient (BNV) | payer OTHER, SELFPAY | PROVIDERS: PCP Internal Medicine; Visit Provider Internal Medicine | DX: N63.15 Unspecified lump in the right breast, overlapping quadrants (principal) | CPT/HCPCS: 76642; 77065 ==

== ENCOUNTER 2025-01-23 09:20 | Outpatient (AMB) | payer OTHER, SELFPAY ==
--- OUTSIDE RECORDS SUMMARY | 2025-01-23 09:25 | XMS_ITS | Encounter Summary ---
Author Organization [facility] Address [facility] [employer] [address] [address] Phone Care Team Providers Care Pediatric Physician Assistant Name Role Phone Malaika Cuello MD Primary Care Provider [phone] Encounter Details Date Type Department Care Team (Late st Contact Info) Description 09/02/2019 Ancillary Orders Virtual Department [address] [place] [address] Malaika Cuello MD [address] [place] [address] Gross hematuria; Contusion of lower back, initial encounter Social History Tobacco Use Types Packs/Day Years Used Date Smoking Tobacco: Never Assessed Comments Unknown Sex and Gender Information Value Date Recorded Sex Assigned at Not on file Legal Sex Female 11:16 AM EDT Gender Identity Not on file Sexual Orientation Not on file documented as of this encounter Plan of Treatment Not on file documented as of this encounter Visit Diagnoses Diagnosis Gross hematuria Contusion of lower back, initial encounter documented in this encounter Additional Health Concerns Infection Onset Date Last Indicated Resolved Time CoV-Risk Comment:Referred for COVID-19 testing 08/22/2019 08/22/2019 09/05/2019 1:23 AM E DT CoV-Risk 02/12/2020 02/12/2020 02/13/2020 2:32 PM EDT CoV-Exposed Comment:From COVIDPass 06/07/2021 06/07/2021 06/22/2021 1:23 A M EST documented as of this encounter Care Teams Pediatric Physician Assistant Relationship Specialty Start Date End Date Malaika Cuello MD [address] [place] [address] PCP - General Internal Medicine 09/12/17 documented as of this encounter Additional Source Comments The information contained in this document represents components of the legal health record. It is not the complete legal health record.[facility]
--- OUTSIDE RECORDS SUMMARY | 2025-01-23 09:25 | XMS_ITS | Clinical Summary ---
Author Organization [facility] Address [address] [place] [address] Phone Care Team Providers Care Diabetes Manager Name Role Phone Malaika Cuello MD Primary Care Provider [phone] Allergies Active Allergy Reactions Criticality Noted Date Comments Bupropion Hcl Sleep Issues 08/15/2024 Levofloxacin Rash 08/15/2024 Penicillins Rash 08/15/2024 Sulfamethoxazole Hives 08/15/2024 Medications LORazepam (ATIVAN) 0.5 mg tablet Take 0.5 mg by mouth every 6 hours as needed. Active citalopram hydrobromide (CELEXA ORAL) Take 30 mg by mouth 1 (one) time each day. Active lansoprazole (PREVACID) [address] capsuleIndication s:Gastroesophagea l reflux disease without esophagitis Take 1 capsule (30 mg total) by mouth 1 (one) time each day. Do not crush or chew. 90 each 3 5 08/16/19 26 Active propranoloL (INDERAL) 10 mg tablet Take 1 tablet (10 mg total) by mouth 1 (one) time if needed (anxiety). Active Active Problems Problem Noted Date Diagnosed Date [...] with our office. Colon Hx polyps/5 yr (2017) [address] Colonoscopy reviewed with patient. Risks discussed including bleeding perforation and missed lesions. There is always a chance surgery or transfusion could be required. Prep discussed with patient. Risks of anesthesia reviewed. Patient advised will need a ride home, not to have liquids for at least 3 hours prior to the procedure. Rheumatoid arthritis (CMS/[facility] V24, [facility] V28) 08/15/2024 Surgical History Surgery Date Site/Laterality Comments OTHER SURGICAL HISTORY 2003 PROCEDURE: [place] HYSTEROSCOPY ENDOMETRIAL ABLATION OTHER SURGICAL HISTORY 01/19/2015 PROCEDURE: [place] ANTERIOR COLPORRAPHY RPR CYSTOCELE W/CYSTO COLONOSCOPY 03/04/2018 [...] 63 09/18/2024 8:24 AM EDT Temperature 37.2 C (99 F) 09/18/2024 8:24 AM EDT Respiratory Rate 17 [...] 05/13/2021, 07/01/2020, Additional history exists Depression Screening 06/04/2024 HIV Screening 07/21/2024 Hepatitis C Screening 07/21/2024 Social Influencers of Health Screening 07/21/2024 Influenza Vaccine (#1) 2025 , 03/10/2019, 03/27/2018, Additional history exists Cervical Cancer [...] this topic Medical Devices Implanted Type Area Coroner'S Juror Device Identifier Shelf Expiration Date Model / Serial / Lot Dental Implants Dental Implants N/A: Mouth Procedures Procedure Name Priority Date/Time Associated Diagnosis Comments PAP SMEAR Routine 08/14/2024 12:00 AM EDT Encounter for gynecological examination (general) (routine) without abnormal findings EXTERNAL COLONOSCOPY REPORT Routine 03/05/2018 9:03 AM EDT from Last 3 Months or Most Recently Relevant to Health Maintenance Results * Pap smear (08/14/2024 12:00 AM EDT) Interpretation Negative for intraepithelial lesion or malignancy 08/18/2024 9:54 AM [facility] General Categorization Negative 08/18/2024 9:54 AM [facility] Specimen Adequacy Satisfactory for evaluation, endocervical/peres sformation zone component absent 08/18/2024 9:54 AM [facility] Pap Methodology Liquid Based Pap Test 08/18/2024 9:54 AM [facility] Disclaimer The Pap test is a screening test which carries an inherent false negative rate. These test results should be correlated with the patient's clinical findings and history. This Pap test was processed using an automated screening system. Technical cytopathology services provided by [facility], at [address] [place] [address], [place] [address] (CLIA # [id number]/Gladis Christensen MD, Oil Exploration Engineer.) 08/18/2024 9:54 AM [facility] Console Pap Interpretation Reported 08/18/2024 9:54 AM EDT [facility]) [facility] Brushing/Spatula Cervix uteri structure / Unknown 08/14/2024 08/15/2024 6:43 AM EDT Sara Arriola MD LAB CYTOLOGY ORDERABLES Final Result [facility] ([facility]) [facility] [address] [place] [address], * External Colonoscopy Report (03/05/2018 9:03 AM EDT) Anatomical Region Laterality Modality Endoscopy Historical Provider GI~PROCEDURE ORDERABLES F inal Result from Last 3 Months or Most Recently Relevant to Health Maintenance Insurance [employer] [facility] Advance Directives * Full Code - Default [...] currently active code status orders. Care Teams Diabetes Manager Relationship Specialty Start Date End Date Malaika Cuello MD [address] [place] [address] PCP - General Internal Medicine 07/21/24
[2025-01-23 09:28] VITALS: BP 114/76; PULSE 73; TEMP 36.7; O2SAT 97; BMI 28.0
--- NOTE | 2025-01-23 09:28 | AM.OFFWIN_ITS ---
Intake Vital Signs 01/23/25 09:28 Height 5 ft 5 in Weight 168 lb BMI 28.0 BP 114/76 Blood Pressure Location Lt brachial Position Sitting Pulse 73 Pulse Source Pulse Oximeter Temp 98.1 F Temp Source Oral Pulse Oximetry (%) 97 Oxygen Delivery Method Room Air Intake Visit Reasons: EP RT leg pain Intake Note: pt presents with right hip to mid thigh pain x1 mo; denies injury or excessive activity Allergies Sulfa (Sulfonamide Antibiotics) Allergy (Intermediate, Verified 01/23/25 09:31) rash, dyspnea Do you need a note to return to daycare/school/sports/work: No HPI HPI Comments History of Present Illness Details History of Present Illness - The patient is a 59-year-old female pr esenting with right groin pain. - The pain began a month ago, with swell ing and shooting pain localized to the affected area. 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 - The pain is not accompanied by numbnes s, tingling, or popping sensations. - The patient has been using ibuprofen f or pain management for the past month, resulting in gastrointestinal discomfort. - He denies trauma or fall but admits to running and going up stairs while at work. - She denies numbness, tingling, dysuria , hematuria, back pain, hip pain, sciatica, saddle anesthesia, or incontinence. Physical Exam General: Cooperative, healthy appearing, comfortable, no acute distress and well developed Orientation: Patient oriented x3 Limitations: No limitations Respiratory: Normal respiratory effort and able to speak in complete sentences. Clear to auscultation bilaterally Cardiovascular: Regular rate and rhythm. Normal S1 and S2 GI: Normal to inspection. Soft to palpation and nontender, no guarding noted. No hernia noted. Skin: No rashes or lesions noted Neuro: Sensation is intact. Extremities: Normal to inspection. FROM of the right hip. No click noted. Adduction and abduction of the hip is intact. No TTP of the right lateral hip. Hard mass noted in the right groin, TTP. TTP of the right anterior upper thigh. Strength is 5/5 on the LE. FROM of the knee bilaterally. FROM of the right ankle. Patient was informed and verbally consented to the use of an ambient scribe for clinic note documentation during this visit. [facility] Social History Alcohol intake: never Review of Systems Const All systems reviewed & are unremarkable except as noted in HPI and below Physical Exam Vital Signs: Last Vital Signs Temp 98.1 F 01/23/25 09:28 Pulse 73 01/23/25 09:28 BP 114/76 01/23/25 09:28 Pulse Ox 97 01/23/25 09:28 Oxygen Delivery Method Room Air 01/23/25 09:28 BMI result Body Mass Index 28.0 Assessment & Plan Assessment & Plan (1) Strain of right groin: Code(s): S76.211A - Strain of adductor muscle, fascia and tendon of right thigh, initial encounter Plan Most likely strain of muscle vs bursitis vs arthritis Plan - Will order an x-ray of hip and pelvis - Prescribe muscle relaxants and a short course of prednisone to manage muscle spasm. - Recommend physical therapy to address musculoskeletal pain and enhance mobility. - Instruct the patient to seek a referral for physical therapy from her primary care provider. - Follow up with PCP Orders: Orders XR hip RT w PEL1V Today M25.551 - Pain in right hip Medications: New prednisone 40 mg (2 x 20 mg) PO DAILY 10 tabs 0RF 5 days cyclobenzaprine 5 mg PO Q8H PRN 21 tabs 0RF Muscle Spasm 7 days Coding Level of Care Code Est Pt Level 4 (95363) Diagnoses Strain of right groin S76.211A
== END 2025-01-23 09:54 | disposition home or self-care (01) ==
PROVIDERS: PCP Internal Medicine; Visit Provider Physician Assistant Medical
DX: S76.211A Strain of adductor muscle, fascia and tendon of right thigh, initial encounter (principal)

== ENCOUNTER 2025-04-09 12:49 | Outpatient (REF) | payer OTHER, SELFPAY ==
--- OUTSIDE RECORDS SUMMARY | 2006-11-11 23:00 | XMS_ITS | Encounter Summary ---
Author Organization [facility] Address [facility] [employer] [address] [address] Phone Care Team Providers Care Buckle And Button Maker Name Role Phone Unavailable Primary Care Provider Unavailabl e Encounter Details Date Type Department Care Team (Late st Contact Info) Description 11/12/2006 Hospital Encounter [facility],Outside Imaging [address] [place] [address] System, Provider [place] In, [place] [address] Social History Tobacco Use Types Packs/Day Years Used Date Smoking Tobacco: Never Assessed Education Answer Date Recorded Are you interested in more education? Not on sole e 09/29/2022 Are you concerned about learning? Not on file 09/29/2022 No 09/29/2022 No 09/29/2022 Digital Access Answer Date Recorded No 10/31/2022 No 10/31/2022 Reliable internet access at home? Not on file 10/31/2022 Device with a working camera? Not on file Comments No Sex and Gender Information Value Date Recorded Sex Assigned at Not on file Legal Sex Female 11:16 AM EDT Gender Identity Not on file Sexual Orientation Not on file documented as of this encounter Plan of Treatment Not on file documented as of this encounter Procedures Procedure Name Priority Date/Time Associated Diagnosis Comments BI MAMMOGRAM OUTSIDE (NO INTERPRETATION) Routine 11/12/2006 12:00 AM EDT documented in this encounter Results * Mammogram Outside (No Interpretation) (11/12/2006 12:00 AM EDT) Narrative SYSTEMGENERATED, DOCUMENTATION - 04/19/2020 12:11 PM EST This study is for PACS storage only and not for interpretation. us Provider Not In System PhD IMG OUTSIDE IMAGING W /OUT INTERPRETATION Final Result documented in this encounter Visit Diagnoses Not on filedocumented in this encounter Additional Health Concerns Infection Onset Date Last Indicated Resolved Time CoV-Risk Comment:Referred for COVID-19 testing 08/22/2019 08/22/2019 09/05/2019 1:23 AM E DT CoV-Risk 02/12/2020 02/12/2020 02/13/2020 2:32 PM EDT CoV-Exposed Comment:From [facility] 06/07/2021 06/07/2021 06/22/2021 1:23 A M EST documented as of this encounter Additional Source Comments The information contained in this document represents components of the legal health record. It is not the complete legal health record.[facility]
--- OUTSIDE RECORDS SUMMARY | 2013-02-11 23:00 | XMS_ITS | Encounter Summary ---
Author Organization [facility] Address [facility] [address] [address] Phone Care Team Providers Care Contracts Officer Name Role Phone Unavailable Primary Care Provider Unavailabl e Encounter Details Date Type Department Care Team (Late st Contact Info) Description 02/12/2013 Hospital Encounter [facility],Outside Imaging [address] [place] [address] System, Provider Not In, [place] [address] Social History Tobacco Use Types Packs/Day Years [...] Comments BI MAMMOGRAM OUTSIDE (NO INTERPRETATION) Routine 02/12/2013 12:00 AM EDT documented in this encounter Results * Mammogram Outside (No Interpretation) (02/12/2013 12:00 AM EDT) Narrative SYSTEMGENERATED, DOCUMENTATION - 04/19/2020 12:10 PM EST This study is for PACS [...] It is not the complete legal health record.[facility]
--- OUTSIDE RECORDS SUMMARY | 2013-02-17 23:00 | XMS_ITS | Encounter Summary ---
Author Organization [facility] Address [facility] [employer] [address] [address] Phone Care Team Providers Care Chemical Dependency Therapist Name Role Phone Unavailable Primary Care Provider Unavailabl e Encounter Details Date Type Department Care Team (Late st Contact Info) Description 02/18/2013 Hospital Encounter [facility],Outside Imaging [address] [place] [address] System, Provider Not In, [place] [address] Social History Tobacco Use Types Packs/Day Years [...] Comments BI MAMMOGRAM OUTSIDE (NO INTERPRETATION) Routine 02/18/2013 12:00 AM EDT documented in this encounter Results * Mammogram Outside (No Interpretation) (02/18/2013 12:00 AM EDT) Narrative SYSTEMGENERATED, DOCUMENTATION - 04/19/2020 12:09 PM EST This study is for PACS [...] It is not the complete legal health record.[facility]
--- OUTSIDE RECORDS SUMMARY | 2013-02-17 23:05 | XMS_ITS | Encounter Summary ---
Author Organization [facility] Address [facility] [address] [place] [phone] Phone Care Team Providers Care Manager Embalmer Funeral Director Name Role Phone Unavailable Primary Care Provider Unavailabl e Encounter Details Date Type Department Care Team (Late st Contact Info) Description 02/18/2013 12:05 AM EDT Hospital Encounter [facility],Outside Imaging [address] [place] [address] System, Provider Not In, PhD [facility] [address] [address] Social History Tobacco Use Types Packs/Day Years [...] Name Priority Date/Time Associated Diagnosis Comments BI US BREAST OUTSIDE (NO INTERPRETATION) Routine 02/18/2013 12:05 AM EDT documented in this encounter Results * US Breast Outside (No Interpretation) (02/18/2013 12:05 AM EDT) Narrative SYSTEMGENERATED, DOCUMENTATION - 04/19/2020 [...] It is not the complete legal health record.[facility]
--- OUTSIDE RECORDS SUMMARY | 2025-04-09 15:47 | XMS_ITS | Encounter Summary ---
Author Organization [facility] Address [address] [facility] [address] [place] [address] Phone Care Team Providers Care Surface Plate Finisher Name Role Phone Malaika Cuello MD Primary Care Provider Encounter Details Date Type Department Care Team (Late st Contact Info) Description 06/25/2020 Procedure Pass [facility], [address] [address] Social History Tobacco Use Types Packs/Day Years Used Date Smoking Tobacco: Never Assessed Comments No Sex and Gender Information Value Date Recorded Sex Assigned at Not on file Legal Sex Female 11:16 AM EDT Gender Identity Not on file Sexual Orientation Not on file documented as of this encounter Plan of Treatment Not on file documented as of this encounter Visit Diagnoses Not on filedocumented in this encounter Additional Health Concerns Infection Onset Date Last Indicated Resolved Time CoV-Exposed Comment:From COVIDPass 06/07/2021 06/07/2021 06/22/2021 1:23 A M EST documented as of this encounter Care Teams Surface Plate Finisher Relationship Specialty Start Date End Date Malaika Cuello MD [address] [place] [address] PCP - General Internal Medicine 09/12/17 documented as of this encounter Additional Source Comments The information contained in this document represents components of the legal health record. It is not the complete legal health record.[facility]
--- OUTSIDE RECORDS SUMMARY | 2025-04-09 15:47 | XMS_ITS | Encounter Summary ---
Author Organization [facility] Address [facility] [employer] [address] [address] Phone Care Team Providers Care Mannequin Sander And Finisher Name Role Phone Malaika Cuello MD Primary Care Provider [phone] Encounter Details Date Type Department Care Team (Late st Contact Info) Description 09/12/2017 Ancillary Orders [facility], X-Ray - [address] [address] Jeannette Snowden, STRANDING MACHINE OPERATOR HELPER Pre-employment health screening examination Social History Tobacco Use Types Packs/Day Years Used Date Smoking Tobacco: Never Assessed Comments Unknown Sex and Gender Information Value Date Recorded Sex Assigned at Not on file Legal Sex Female 11:16 AM EDT Gender Identity Not on file Sexual Orientation Not on file documented as of this encounter Plan of Treatment Not on file documented as of this encounter Results * XR CHEST 1 VIEW (09/12/2017 11:49 AM EDT) Anatomical Region Laterality Modality Chest Radiographic Mary ging 09/12/2017 11:5 3 AM EDT Impressions 09/12/2017 11:54 AM EDT Normal single view chest POS [id number] Narrative 09/12/2017 11:54 AM EDT A single PA chest. No comparison Normal heart and mediastinal contour. No gross or calcified adenopathy. No infiltrate, interstitial disease, nodules/granulomata or effusion. No bony abnormalities. Procedure Note Humza Ku MD - 09/12/2017 A single PA chest. No comparison Normal heart and mediastinal contour. No gross or calcified adenopathy. No infiltrate, interstitial disease, nodules/granulomata or effusion. No bony abnormalities. IMPRESSION: Normal single view chest POS [id number] Jeannette DENSONP IMG XR CHEST Final Resul t documented in this encounter Visit Diagnoses Diagnosis Pre-employment health screening examination Health examination of defined subpopulation Pre-employment health screening examination Health examination of defined subpopulation documented in this encounter Additional Health Concerns Infection Onset Date Last Indicated Resolved Time CoV-Risk Comment:Referred for COVID-19 testing 08/22/2019 08/22/2019 09/05/2019 1:23 AM E DT CoV-Risk 02/12/2020 02/12/2020 02/13/2020 2:32 PM EDT CoV-Exposed Comment:From COVIDPass 06/07/2021 06/07/2021 06/22/2021 1:23 A M EST documented as of this encounter Care Teams Mannequin Sander And Finisher Relationship Specialty Start Date End Date Malaika Cuello MD [address] [place] [address] PCP - General Internal Medicine 09/12/17 documented as of this encounter Additional Source Comments The information contained in this document represents components of the legal health record. It is not the complete legal health record.[facility]
--- OUTSIDE RECORDS SUMMARY | 2025-04-09 15:47 | XMS_ITS | Encounter Summary ---
Author Organization [facility] Address [address] [place] [address] Phone Care Team Providers Care Laborer Tin Can Name Role Phone Malaika Cuello MD Primary Care Provider Encounter Details Date Type Department Care Team (Late st Contact Info) Description 04/09/2020 Procedure Pass [address] [address] Social History Tobacco Use Types Packs/Day Years [...] documented as of this encounter Care Teams Laborer Tin Can Relationship Specialty Start Date End Date Malaika Cuello MD [address] [place] [address] PCP - General Internal Medicine 09/12/17 documented as of this encounter Additional Source Comments The information contained in this document represents components of the legal health record. It is not the complete legal health record.[facility]
--- OUTSIDE RECORDS SUMMARY | 2025-04-09 15:47 | XMS_ITS | Encounter Summary ---
Author Organization [facility] Address [facility] [employer] [address] [address] Phone Care Team Providers Care Glove Operator Name Role Phone Malaika Cuello MD Primary Care Provider [phone] Encounter Details Date Type Department Care Team (Latest Contact Info) Description 09/12/2017 Transcribe Orders [facility] [address] [place] [phone] Jeannette Snowden ARNP Pre-employment health screening examination (Primary Dx) Social History Tobacco Use Types Packs/Day Years Used Date Smoking Tobacco: Never Assessed Comments Unknown Sex and Gender Information Value Date Recorded Sex Assigned at Not on file Legal Sex Female 11:16 AM EDT Gender Identity Not on file Sexual Orientation Not on file documented as of this encounter Plan of Treatment Not on file documented as of this encounter Results * Varicella-zoster (VZV) antibody, IgG (09/12/2017 11:29 AM EDT) Varicella Ab(s) Positive Positive [facility] Blood (Blood) 09/12/2017 11: 29 AM EDT 09/12/2017 11:42 AM EDT us Jeannette DENTON LAB BLOOD BKR ORDERABLES Fi nal Result [address] [address] * Rubella antibody, IgG (09/12/2017 11:29 AM EDT) Rubella Ab, IgG Positive Positive [facility] Blood (Blood) 09/12/2017 11: 29 AM EDT 09/12/2017 11:42 AM EDT Jeannette Gross Snowden SWING MANAGER LAB BLOOD BKR ORDERABLES Fi nal Result Performing Organization Address City/[facility]/ZIP Co de Phone Number [address] [address] * Mumps antibody, IgG (09/12/2017 11:29 AM EDT) MUMPS IGG AB Positive Positive [facility] Blood (Blood) 09/12/2017 11: 29 AM EDT 09/12/2017 11:42 AM EDT Jeannette Gross Snowden [facility] LAB BLOOD BKR ORDERABLES Fi nal Result Performing Organization Address [facility]/ZIP Co de Phone Number [address] [address] * Measles antibody, IgG (09/12/2017 11:29 AM EDT) RUBEOLA IGG Positive Positive [facility] Blood (Blood) 09/12/2017 11: 29 AM EDT 09/12/2017 11:42 AM EDT Jeannette Snowden [facility] LAB BLOOD BKR ORDERABLES Fi nal Result Performing Organization Address City/[facility] Co de Phone Number [address] [address] * Hepatitis B surface antibody (09/12/2017 11:29 AM EDT) HBV SURFACE ANTIBODY Positive [facility] Comment: Unvaccinated: Negative Vaccinated: Positive Blood 09/12/2017 11:2 9 AM EDT 09/12/2017 11:41 AM EDT us Jeannette Snowden SWING MANAGER LAB BLOOD BKR ORDERABLES Fi nal Result [facility] [address] [place], [place] [id number] documented in this encounter Visit Diagnoses Diagnosis Pre-employment health screening examination- Primary Health examination of defined subpopulation documented in this encounter Additional Health Concerns Infection Onset Date Last Indicated Resolved Time CoV-Risk Comment:Referred for COVID-19 testing 08/22/2019 08/22/2019 09/05/2019 1:23 AM E DT CoV-Risk 02/12/2020 02/12/2020 02/13/2020 2:32 PM EDT CoV-Exposed Comment:From COVIDPass 06/07/2021 06/07/2021 06/22/2021 1:23 A M EST documented as of this encounter Care Teams Glove Operator Relationship Specialty Start Date End Date Malaika Cuello MD [address] [place] [address] PCP - General Internal Medicine 09/12/17 documented as of this encounter Additional Source Comments The information contained in this document represents components of the legal health record. It is not the complete legal health record.[facility]
--- OUTSIDE RECORDS SUMMARY | 2025-04-09 15:47 | XMS_ITS | Encounter Summary ---
Author Organization [facility] Address [facility] [employer] [address] [address] Phone Care Team Providers Care Custodian Name Role Phone Malaika Cuello MD Primary Care Provider Encounter Details Date Type Department Care Team (Late st Contact Info) Description 04/09/2020 Ancillary Orders Virtual Department [address] [place] [address] Sara Edwards MD [address] [phone] Breast screening Social History Tobacco Use Types Packs/Day Years Used Date Smoking Tobacco: Never Assessed Comments Unknown Sex and Gender Information Value Date Recorded Sex Assigned at Not on file Legal Sex Female 11:16 AM EDT Gender Identity Not on file Sexual Orientation Not on file documented as of this encounter Plan of Treatment Not on file documented as of this encounter Results * BI MAMMOGRAM SCREENING WITH TOMOSYNTHESIS WITH CAD (BILATERAL) (06/11/2020 8:53 AM EST) Anatomical Region Laterality Modality Breast Left, Breast Right, Breast Bilateral Bila teral Mammography 06/11/2020 3:01 PM EST Impressions 06/11/2020 3:07 PM EST BILATERAL BREASTS: Negative, no evidence of malignancy. Normal interval follow- up is recommended in 12 months. Bi-RADS: BI-RADS CATEGORY: 1 - Negative. DENSITY: There are scattered fibroglandular densities. Narrative 06/11/2020 3:07 PM EST STUDY: Bilateral screening mammography with tomosynthesis and CAD TECHNIQUE: Bilateral full-field digital screening mammography is obtained and read in conjunction with computer-aided detection. Tomosynthesis as well as 2-D C view imaging were obtained. COMPARISON: Comparison made to February 12, 2013 and November 12, 2006 BREAST COMPOSITION: There are scattered areas of fibroglandular density RIGHT BREAST: Marker from previous needle core biopsy. No significant masses, suspicious calcifications or other abnormalities are seen. LEFT BREAST: No significant masses, suspicious calcifications or other abnormalities are seen. Procedure Note Samy Mckinney MD - 06/11/2020 STUDY: Bilateral screening mammography with tomosynthesis and CAD TECHNIQUE: Bilateral full-field digital screening mammography is obtainedand read in conjunction with computer-aided detection. Tomosynthesis aswell as 2-D C view imaging were obtained. COMPARISON: Comparison made to February 12, 2013 and November 12, 2006 BREAST COMPOSITION: There are scattered areas of fibroglandulardensity RIGHT BREAST: Marker from previous needle core biopsy. No significantmasses, suspicious calcifications or other abnormalities are seen. LEFT BREAST: No significant masses, suspicious calcifications or otherabnormalities are seen. IMPRESSION: BILATERAL BREASTS: Negative, no evidence of malignancy. Normal intervalfollow-up is recommended in 12 months. Bi-RADS: BI-RADS CATEGORY: 1 - Negative. DENSITY: There are scattered fibroglandular densities. us Sara Edwards MD IMG MG EXAMS Final Result documented in this encounter Visit Diagnoses Diagnosis Breast screening Breast screening, unspecified Breast screening Breast screening, unspecified documented in this encounter Additional Health Concerns Infection Onset Date Last Indicated Resolved Time CoV-Exposed Comment:From COVIDPass 06/07/2021 06/07/2021 06/22/2021 1:23 A M EST documented as of this encounter Care Teams Custodian Relationship Specialty Start Date End Date Malaika Cuello MD [address] [place] [address] PCP - General Internal Medicine 09/12/17 documented as of this encounter Additional Source Comments The information contained in this document represents components of the legal health record. It is not the complete legal health record.[facility]
--- OUTSIDE RECORDS SUMMARY | 2025-04-09 15:47 | XMS_ITS | Encounter Summary ---
Author Organization [facility] Address [address] [place] [address] Care Team Providers Care Investment Analyst Name Role Phone Malaika Cuello MD Primary Care Provider [phone] Encounter Details Date Type Department Care Team (Latest Contact Info) Description 08/15/2024 Lab Requisition [facility] - Main Lab [address] [place] [phone] Sara Arriola MD [address] [phone] Encounter for gynecological examination (general) (routine) without [...] lesion or malignancy 08/18/2024 9:54 AM EDT [facility] General Categorization Negative 08/18/2024 9:54 AM [facility] Specimen Adequacy Satisfactory for evaluation, endocervical/peres sformation zone component absent 08/18[facility]2024 [facility] Pap Methodology Liquid Based Pap Test 08/18/2024 9:54 AM EDT [facility] Disclaimer The Pap test is a screening test which carries an inherent false negative rate. These test results should be correlated with the patient's clinical findings and history. This Pap test was processed using an automated screening system. Technical cytopathology services provided by [facility], at [address] [place] [address] (CLIA # [id number]/Gladis Christensen MD, Investigative Reporter.) 08/18/2024 9:54 AM EDT [facility] Console Pap Interpretation Reported 08/18/2024 9:54 AM [facility] Brushing/Spatula Cervix uteri structure / Unknown 08/14/2024 08/15/2024 6:43 AM EDT us Sara Arriola MD LAB CYTOLOGY ORDERABLES Final Result [facility] [address] [place] [address], documented in this encounter Visit Diagnoses Diagnosis Encounter for gynecological examination (general) (routine) without abnormal findings documented in this encounter Care Teams Investment Analyst Relationship Specialty Start Date End Date Malaika Cuello MD [address] [place] [address] PCP - General Internal Medicine 07/21/24 documented as of this encounter
--- OUTSIDE RECORDS SUMMARY | 2025-04-09 15:47 | XMS_ITS | Encounter Summary ---
Author Organization [facility] Address Formerly [facility] [address] [address] Phone Care Team Providers Care Religion Professor Name Role Phone Malaika Cuello MD Primary Care Provider Encounter Details Date Type Department Care Team (Late st Contact Info) Description 06/25/2020 Transcribe Orders Virtual Department [address] [place] [address] Malaika Cuello MD [address] [place] [address] Convulsions, unspecified convulsion type (Primary Dx) Social History Tobacco Use Types [...] as of this encounter Visit Diagnoses Diagnosis Convulsions, unspecified convulsion type- Primary documented in this encounter Additional Health Concerns Infection Onset Date Last Indicated Resolved Time CoV-Exposed Comment:From COVIDPass 06/07/2021 06/07/2021 06/22/2021 1:23 A M EST documented as of this encounter Care Teams Religion Professor Relationship Specialty Start Date End Date Malaika Cuello MD [address] [place] [address] PCP - General Internal Medicine 09/12/17 documented as of this encounter Additional Source Comments The information contained in this document represents components of the legal health record. It is not the complete legal health record.[facility]
--- OUTSIDE RECORDS SUMMARY | 2025-04-09 15:47 | XMS_ITS | Encounter Summary ---
Author Organization [facility] Address [facility] [address] [address] Phone Care Team Providers Care Information Management Manager Name Role Phone Malaika Cuello MD Primary Care Provider [phone] Reason for Referral * MRI/CAT Scan - Closed Specialty Diagnoses / Procedures Referred By Temitope davis Referred To Contact Radiology Diagnoses Convulsions, unspecified convulsion type Concussion with loss of consciousness of unspecified duration, initial encounter Procedures MRI Brain MRI Brain Malaika Cuello MD Phone: tel: Referral ID Status Reason Start Date Expiration Date Visits Re quested Visits Authorized [id number] Closed 06/25/2020 06/25/2021 1 1 Encounter Details Date Type Department Care Team (Late st Contact Info) Description 06/25/2020 Ancillary Orders Virtual Department [address] [place] [address] Malaika Cuello MD [address] [place] [address] Convulsions, unspecified convulsion type; Concussion with loss of consciousness of unspecified duration, initial encounter Social History Tobacco Use Types [...] documented as of this encounter Results * MRI BRAIN WITH AND WITHOUT CONTRAST (07/07/2020 10:02 AM EST) Anatomical Region Laterality Modality Head Magnetic Resonan ce 07/07/2020 10:1 5 AM EST Impressions 07/07/2020 10:24 AM EST No acute intracranial abnormality, mass, hydrocephalus, or abnormal enhancement. Narrative 07/07/2020 10:24 AM EST TECHNIQUE: MRI BRAIN WITH AND WITHOUT CONTRAST COMPARISON: CT head 06/17/2020 FINDINGS: Evaluation of fine anatomic detail is partially limited secondary to motion artifact on the postcontrast T1-weighted images; within these limitations: There is no evidence of intracranial mass, hemorrhage or acute infarction. There is no abnormal enhancement. There is minimal nonspecific periventricular and scattered subcortical white matter T2-FLAIR hyperintensities, which can be seen with chronic small vessel disease. There is a punctate nonspecific susceptibility effect focus within the right basal ganglia, which may represent focal mineralization or prior microhemorrhage. The ventricles, sulci and cisterns are diffusely prominent, which is most consistent with mild generalized parenchymal volume loss. There is no evidence of hydrocephalus. The flow voids of the major intracranial vessels appear intact. The bones and extracranial soft tissues are unremarkable. Procedure Note Lv Garcia MD, PhD - 07/07/2020 TECHNIQUE: MRI BRAIN WITH AND WITHOUT CONTRAST COMPARISON: CT head 06/17/2020 FINDINGS: Evaluation of fine anatomic detail is partially limited secondary tomotion artifact on the postcontrast T1-weighted images; within theselimitations: There is no evidence of intracranial mass, hemorrhage or acute infarction.There is no abnormal enhancement. There is minimal nonspecific periventricular and scattered subcorticalwhite matter T2-FLAIR hyperintensities, which can be seen with chronicsmall vessel disease. There is a punctate nonspecific susceptibility effect focus within theright basal ganglia, which may represent focal mineralization or priormicrohemorrhage. The ventricles, sulci and cisterns are diffusely prominent, which is mostconsistent with mild generalized parenchymal volume loss. There is noevidence of hydrocephalus. The flow voids of the major intracranial vessels appear intact. The bones and extracranial soft tissues are unremarkable. IMPRESSION: No acute intracranial abnormality, mass, hydrocephalus, or abnormalenhancement. Malaika Cuello MD IMG MR HEAD/NECK Final Result documented in this encounter Visit Diagnoses Diagnosis Convulsions, unspecified convulsion type Concussion with loss of consciousness of unspecified duration, initial encounter Convulsions, unspecified convulsion type Concussion with loss of consciousness of unspecified duration, initial encounter documented in this encounter Additional Health Concerns Infection Onset Date Last Indicated Resolved Time CoV-Exposed Comment:From COVIDPass 06/07/2021 06/07/2021 06/22/2021 1:23 A M EST documented as of this encounter Care Teams Information Management Manager Relationship Specialty Start Date End Date Malaika Cuello MD [address] [place] [address] PCP - General Internal Medicine 09/12/17 documented as of this encounter Additional Source Comments The information contained in this document represents components of the legal health record. It is not the complete legal health record.[facility]
--- OUTSIDE RECORDS SUMMARY | 2025-04-09 15:47 | XMS_ITS | Encounter Summary ---
Author Organization [facility] Address [facility] [address] [address] Phone Care Team Providers Care Shrimp Boat Captain Name Role Phone Malaika Cuello MD Primary Care Provider Encounter Details Date Type Department Care Team (Late st Contact Info) Description 09/02/2019 Ancillary Orders Virtual Department [address] [place] [address] Malaika Cuello MD [address] [place] [address] Gross hematuria; Contusion of lower back, initial [...] documented as of this encounter Care Teams Shrimp Boat Captain Relationship Specialty Start Date End Date Malaika Cuello MD [address] [place] [address] PCP - General Internal Medicine 09/12/17 documented as of this encounter Additional Source Comments The information contained in this document represents components of the legal health record. It is not the complete legal health record.[facility]
--- OUTSIDE RECORDS SUMMARY | 2025-04-09 15:47 | XMS_ITS | Encounter Summary ---
Author Organization [facility] Address [address] [facility] [address] [place] [address] Phone Care Team Providers Care Attendance Secretary Name Role Phone Malaika Cuello MD Primary Care Provider Encounter Details Date Type Department Care Team (Late st Contact Info) Description 06/11/2020 Procedure Pass [facility], Ct Scan - [address] [address] Social History Tobacco Use Types Packs/Day Years [...] documented as of this encounter Care Teams Attendance Secretary Relationship Specialty Start Date End Date Malaika Cuello MD [address] [place] [address] PCP - General Internal Medicine 09/12/17 documented as of this encounter Additional Source Comments The information contained in this document represents components of the legal health record. It is not the complete legal health record.[facility]
--- OUTSIDE RECORDS SUMMARY | 2025-04-09 15:47 | XMS_ITS | Clinical Summary ---
Author Organization [facility] 299 [facility] Address [address] [place] [address] Phone Care Team Providers Care Customs Brokerage Agent Name Role Phone Malaika Cuello MD Primary Care Provider [phone] Allergies Active Allergy Reactions Criticality Noted Date [...] our office. Colon Hx polyps/5 yr (2017) [address] Colonoscopy reviewed with patient. Risks discussed including bleeding perforation and missed lesions. There is always a chance surgery or transfusion could be required. Prep discussed with patient. Risks of anesthesia reviewed. Patient advised will need a ride home, not to have liquids for at least 3 hours prior to the procedure. Rheumatoid arthritis ([facility] V24, [facility] V28) 08/15/2024 Surgical History Surgery Date Site/Laterality Comments OTHER SURGICAL HISTORY 2003 PROCEDURE: CO HYSTEROSCOPY ENDOMETRIAL ABLATION OTHER SURGICAL HISTORY 01/19/2015 PROCEDURE: CO ANTERIOR COLPORRAPHY RPR CYSTOCELE W/CYSTO COLONOSCOPY 03/04/2018 [...] Safety Answer Date Record ed Physical Abuse Unrecognized value 09/17/2024 Verbal Abuse Unrecognized value 09/17/2024 Comments No Sex and Gender Information [...] 2) 09/12/2013 Breast Cancer Screening 06/11/2022 06/11/2020 Depression Screening 06/04/2024 HIV Screening 07/21/2024 Hepatitis C Screening 07/21/2024 Social Influencers of Health Screening 07/21/2024 COVID-19 Vaccine ( season) 2025 04/10/2022, 05/13/2021, 07/01/2020, Additional history exists Influenza Vaccine (#1) 2025 , 03/10/2019, 03/27/2018, [...] this topic Medical Devices Implanted Type Area Lidding Machine Operator Device Identifier Shelf Expiration Date Model / [...] intraepithelial lesion or malignancy 08/18/2024 9:54 AM [facility] General Categorization Negative 08/18/2024 9:54 AM [facility] Specimen Adequacy Satisfactory for evaluation, endocervical/peres sformation zone component absent 08/18/2024 9:54 AM [facility] Pap Methodology Liquid Based Pap Test 08/18/2024 9:54 AM [facility] Disclaimer The Pap test is a screening test which carries an inherent false negative rate. These test results should be correlated with the patient's clinical findings and history. This Pap test was processed using an automated screening system. Technical cytopathology services provided by [facility], at [address] [place] [address] (CLIA # [id number]/Gladis Christensen MD, Warp Placer.) 08/18/2024 9:54 AM [facility] Console Pap Interpretation Reported 08/18/2024 9:54 AM EDT [facility]) [facility] Brushing/Spatula Cervix uteri structure / Unknown 08/14/2024 08/15/2024 6:43 AM EDT Sara Arriola MD LAB CYTOLOGY ORDERABLES Final Result [facility] [address] [place] [address], [place] [phone] * External Colonoscopy Report (03/05/2018 9:03 AM EDT) Anatomical Region Laterality Modality Endoscopy [facility] Provider GI~PROCEDURE ORDERABLES F inal Result from Last 3 Months or Most Recently Relevant to Health Maintenance Insurance [employer] [facility] Advance Directives * Full Code - [...] currently active code status orders. Care Teams Customs Brokerage Agent Relationship Specialty Start Date End Date Malaika Cuello MD [address] [place] [address] PCP - General Internal Medicine 07/21/24
--- OUTSIDE RECORDS SUMMARY | 2025-04-09 15:47 | XMS_ITS | Encounter Summary ---
Author Organization [facility] Address [facility] [address] [address] Phone Care Team Providers Care Assembly Member Name Role Phone Malaika Cuello MD Primary Care Provider [phone] Reason for Referral * MRI/CAT Scan - Closed Specialty Diagnoses / Procedures Referred By Temitope davis Referred To Contact Radiology Diagnoses Gross hematuria Contusion of lower back, initial encounter Contusion of lower back and pelvis, initial encounter Unspecified fall, initial encounter Procedures CT Abdomen/Pelvis CT Abdomen/Pelvis Malaika Cuello MD Phone: tel: Referral ID Status Reason Start Date Expiration Date Visits Re quested Visits Authorized [id number] Closed 09/02/2019 09/01/2020 1 1 Encounter Details Date Type Department Care Team (Late st Contact Info) Description 09/02/2019 Ancillary Orders Virtual Department [address] [place] [address] Malaika Cuello MD [address] [place] [address] Gross hematuria; Contusion of lower back, initial encounter; Contusion of lower back and pelvis, initial encounter; Unspecified fall, initial encounter Social History Tobacco Use Types [...] documented as of this encounter Results * CT ABDOMEN/PELVIS WITH CONTRAST (09/02/2019 1:42 PM EDT) Anatomical Region Laterality Modality Abdomen, Pelvis Computed Tomogra phy 09/02/2019 1:46 PM EDT Impressions 09/02/2019 2:09 PM EDT 1. 3 mm calcification likely within the dependent portion of the bladder slightly to the right of midline suspicious for a recently passed calculus. This can be correlated clinically. No other explanation for hematuria. 2. Scott soft tissue density mass with hazy margins in the subcutaneous fat of the left gluteal region presumably representing a hematoma. Clinical follow-up recommended. TOTAL CTDIvol: 19.10 mGy POS - [id number] Narrative 09/02/2019 2:09 PM EDT HISTORY: Pain since fall, trauma to left gluteal region with hematoma, right flank pain and hematuria. COMPARISON: None. TECHNIQUE: CT abdomen and pelvis with IV and oral contrast. Multiplanar reformatted images generated. Automated exposure control utilized. FINDINGS: Lower hemithoraces: No significant abnormalities. GI: No marked bowel distention. Fatty infiltration of the wall of the cecum and descending colon which may be due to chronic inflammation. No significant bowel wall thickening. Normal appendix in the right lower quadrant. No free fluid, free air or evidence of organized collections. Liver/spleen: Liver and spleen appear normal. Pancreas/biliary: No evidence of significant pancreatic abnormalities. Clips in gallbladder fossa from previous cholecystectomy. No significant biliary ductal dilatation. Adrenals/: Adrenals appear normal. Kidneys appear normal. No evidence of renal or ureteral calculi. Ureters normal in caliber. 3 mm calcification likely within the dependent portion of the bladder slightly to the right of midline. Urinary bladder on distended and less than ideally evaluated. Lymph node/lymphatics: No measurable lymphadenopathy. Cardiovascular: No significant abnormalities. Musculoskeletal: Approximate 11 cm x 3 cm oblong soft tissue density mass with hazy margins in the subcutaneous tissues of the left gluteal region. No evidence of acute fractures. Procedure Note Eric Linton MD - 09/02/2019 HISTORY: Pain since fall, trauma to left gluteal region with hematoma,right flank pain and hematuria. COMPARISON: None. TECHNIQUE: CT abdomen and pelvis with IV and oral contrast. Multiplanarreformatted images generated. Automated exposure control utilized. FINDINGS: Lower hemithoraces: No significant abnormalities. GI: No marked bowel distention. Fatty infiltration of the wall of thececum and descending colon which may be due to chronic inflammation. Nosignificant bowel wall thickening. Normal appendix in the right lowerquadrant. No free fluid, free air or evidence of organized collections. Liver/spleen: Liver and spleen appear normal. Pancreas/biliary: No evidence of significant pancreatic abnormalities.Clips in gallbladder fossa from previous cholecystectomy. No significantbiliary ductal dilatation. Adrenals/: Adrenals appear normal. Kidneys appear normal. No evidenceof renal or ureteral calculi. Ureters normal in caliber. 3 mmcalcification likely within the dependent portion of the bladder slightlyto the right of midline. Urinary bladder on distended and less thanideally evaluated. Lymph node/lymphatics: No measurable lymphadenopathy. Cardiovascular: No significant abnormalities. Musculoskeletal: Approximate 11 cm x 3 cm oblong soft tissue density masswith hazy margins in the subcutaneous tissues of the left gluteal region.No evidence of acute fractures. IMPRESSION: 1. 3 mm calcification likely within the dependent portion of the bladderslightly to the right of midline suspicious for a recently passedcalculus. This can be correlated clinically. No other explanation forhematuria. 2. Scott soft tissue density mass with hazy margins in the subcutaneousfat of the left gluteal region presumably representing a hematoma.Clinical follow-up recommended. TOTAL CTDIvol: 19.10 mGy POS - [id number] Malaika Cuello MD IMG CT ABD/PELVIS Final Result documented in this encounter Visit Diagnoses Diagnosis Gross hematuria Contusion of lower back, initial encounter Contusion of lower back and pelvis, initial encounter Unspecified fall, initial encounter Gross hematuria Contusion of lower back, initial encounter Contusion of lower back and pelvis, initial encounter Unspecified fall, initial encounter documented in this encounter Additional Health Concerns Infection Onset Date Last Indicated Resolved Time CoV-Risk Comment:Referred for COVID-19 testing 08/22/2019 08/22/2019 09/05/2019 1:23 AM E DT CoV-Risk 02/12/2020 02/12/2020 02/13/2020 2:32 PM EDT CoV-Exposed Comment:From COVIDPass 06/07/2021 06/07/2021 06/22/2021 1:23 A M EST documented as of this encounter Care Teams Assembly Member Relationship Specialty Start Date End Date Malaika Cuello MD [address] [place] [address] PCP - General Internal Medicine 09/12/17 documented as of this encounter Additional Source Comments The information contained in this document represents components of the legal health record. It is not the complete legal health record.[facility]
--- OUTSIDE RECORDS SUMMARY | 2025-04-09 15:47 | XMS_ITS | Encounter Summary ---
Author Organization [facility] Address [facility] [address] [address] Phone Care Team Providers Care Seam Hammerer Name Role Phone Malaika Cuello MD Primary Care Provider Encounter Details Date Type Department Care Team (Late st Contact Info) Description 04/19/2020 Ancillary Orders [facility],Outside Imaging [address] [place] [address] System, Provider Not In, [facility] [address] [address] Social History Tobacco Use Types Packs/Day Years Used Date Smoking Tobacco: Never Assessed Comments Unknown Sex and Gender Information Value Date Recorded Sex Assigned at Not on file Legal Sex Female 11:16 AM EDT Gender Identity Not on file Sexual Orientation Not on file documented as of this encounter Plan of Treatment Not on file documented as of this encounter Results * US Breast Outside (No Interpretation) (02/18/2013 12:05 AM EDT) Narrative SYSTEMGENERATED, DOCUMENTATION - 04/19/2020 12:09 PM EST This study is for PACS storage only and not for interpretation. us Provider Not In System PhD IMG OUTSIDE IMAGING W /OUT INTERPRETATION Final Result * Mammogram Outside (No Interpretation) (02/18/2013 12:00 AM EDT) Narrative SYSTEMGENERATED, DOCUMENTATION - 04/19/2020 12:09 PM EST This study is for PACS storage only and not for interpretation. us Provider Not In System PhD IMG OUTSIDE IMAGING W /OUT INTERPRETATION Final Result * Mammogram Outside (No Interpretation) (02/12/2013 12:00 AM EDT) Narrative SYSTEMGENERATED, DOCUMENTATION - 04/19/2020 12:10 PM EST This study is for PACS storage only and not for interpretation. us Provider Not In System PhD IMG OUTSIDE IMAGING W /OUT INTERPRETATION Final Result * Mammogram Outside (No Interpretation) (11/12/2006 12:00 [...] documented as of this encounter Care Teams Seam Hammerer Relationship Specialty Start Date End Date Malaika Cuello MD [address] [place] [address] PCP - General Internal Medicine 09/12/17 documented as of this encounter Additional Source Comments The information contained in this document represents components of the legal health record. It is not the complete legal health record.[facility]
--- OUTSIDE RECORDS SUMMARY | 2025-04-09 15:47 | XMS_ITS | Clinical Summary ---
Author Organization [facility] Address [facility] [employer] [address] [address] Phone Care Team Providers Care Used [employer]ovator Name Role Phone Malaika Cuello MD Primary Care Provider [phone] Immunizations Immunization Administration Dates Next Due COVID-19 (Pre-03/26) Moderna Vaccine, mRNA, PF 05/13/2021,05/13/2021,07/01/2020,2019 Influenza Quadrivalent Prese rvative Free IM 03/10/2021 Tdap 10/25/2020 Social History Tobacco Use Types Packs/Day Years [...] on file Sexual Orientation Not on file Last Filed Vital Signs Vital Sign Reading Time Taken Comments Blood Pressure - - Pulse - - Temperature - - Respiratory Rate - - Oxygen Saturation - - Inhaled Oxygen Concentration - - Weight 81.6 kg (180 lb) 07/01/2020 1:30 PM EST Height 165.1 cm (5' 5 ) 07/01/2020 1:30 PM EST Body Mass Index 29.95 07/01/2020 1:30 PM EST Plan of Treatment Health Maintenance Due Date Last Done Comments LIPID PANEL 1963 DEPRESSION SCREENING 1975 SMOKING Hx and SMOKELESS TOBACCO SCREENING 09/12/1976 HEPATITIS C SCREENING 09/12/1981 HIV ONE-TIME SCREENING (18-65 YEARS) 09/12/1981 PAP SMEAR 09/12/1984 COLOGUARD 09/12/2008 COLONOSCOPY 09/12/2008 COLORECTAL CANCER SCREENING 09/12/2008 FIT TEST 09/12/2008 FOBT 09/12/2008 SIGMOIDOSCOPY 09/12/2008 VIRTUAL COLONOSCOPY 09/12/2008 PNEUMOCOCCAL VACCINES (50+ years) (1 of 1 - PCV) 09/12/2013 ZOSTER VACCINES (1 of 2) 09/12/2013 MAMMOGRAM 06/11/2022 06/11/2020, 02/02, 02/12/2013, Additional history exists INFLUENZA VACCINE (#1) 2025 , 03/10/2019, 03/27/2018, Additional history exists COVID-19 VACCINE ( season) 2025 05/13/2021, 05/13/2021, 07/01/2020, Additional history exists Adult Td,Tdap Booster 10/25/2030 10/25/2020, 016 RSV VACCINE (1 - 1-dose 75+ series) 09/12/2038 HEPATITIS A VACCINES Aged Out No long er eligible based on patient's age to complete this topic HIB VACCINES Aged Out No longer eligi ble based on patient's age to complete this topic MENINGOCOCCAL VACCINES (ACWY) Aged Out No longer eligible based on patient's age to complete this topic MENINGOCOCCAL VACCINES (B) Aged Out N o longer eligible based on patient's age to complete this topic Medical Devices Not on file Procedures Procedure Name Priority Date/Time Associated Diagnosis Comments BI MAMMOGRAM SCREENING WITH TOMOSYNTHESIS WITH CAD (BILATERAL) Routine 06/11/2020 8:53 AM EST Breast screening from Last 3 Months or Most Recently Relevant to Health Maintenance Results * BI MAMMOGRAM SCREENING WITH TOMOSYNTHESIS [...] Edwards MD IMG MG EXAMS Final Result from Last 3 Months or Most Recently Relevant to Health Maintenance [place] [address] [place] [address] [employer] [place] [address] [place] [address] [place] [address] [address] [place] [address] [employer] FAMILY . [place], [place] [id number] [place] [address] Care Teams Used Car [employer]ator Relationship Specialty Start Date End Date Malaika Cuello MD [address] [place] [address] PCP - General Internal Medicine 09/12/17 Additional Source Comments The information contained in this document represents components of the legal health record. It is not the complete legal health record.[facility]
== END 2025-04-09 12:50 | disposition home or self-care (01) ==
LOC: HO.MAMMO 12:49
PROVIDERS: PCP Internal Medicine; Visit Provider Internal Medicine
DX: Z13.89 Encounter for screening for other disorder (principal)